=== PATIENT | male | born 1965 | race Caucasian/White ===

== ENCOUNTER → 2017-09-28 | Outpatient (CLI) | payer OTHER ==
[~2017-09-28] MED LIST: CIPR1TAB11 PO; HYDR-5688 PO; TAMS0.4C38 PO; WARF-281 PO; WARF-284 PO
--- NOTE | 2017-09-28 14:10 | DIAGNOSTIC IMAGING REPORT ---
CHEST 2 VIEWS ROUTINE CLINICAL HISTORY: COUGH R05 dyspnea COMPARISON STUDY: 07/31/2015 FINDINGS: Mild stable cardia megaly.. Lungs are clear. The diaphragms are smooth. IMPRESSION: No acute process. The above report was generated using voice recognition software. It may contain grammatical, syntax or spelling errors. Electronically signed by: Declan Suh M.D. 09/28/2017 2:09 PM Dictated Date/Time: 09/28/2017 2:08 PM
== END | disposition home or self-care (01) ==
LOC: C.RAD1850 13:58
PROVIDERS: ATTEND Physician Assistant
DX: R05 Cough (principal)

== ENCOUNTER 2018-02-22 14:01 | Emergency (ER) | payer OTHER ==
[~2018-02-22] VITALS: Ht 185.4 cm; Wt 155.0 kg
[2018-02-22 14:07] VITALS: TEMP 36.5; Ht 185.4 cm; Wt 155.0 kg
[2018-02-22] MEDS ORDERED: KETOROLAC TROMETHAMINE 30 MG/ML VIAL IV STA (14:13)
--- NOTE | 2018-02-22 14:35 | DIAGNOSTIC IMAGING REPORT ---
SINGLE VIEW CHEST CLINICAL HISTORY: Atypical chest pain. FINDINGS: An AP, portable, upright chest radiograph is compared to study dated 09/28/2017 and correlated with chest CT dated 07/31/2015. The examination is degraded by portable technique and patient rotation. The heart is top normal for projection. The pulmonary vasculature is noncongested. There is mild bibasilar atelectasis. No airspace consolidation or large pleural effusion is identified. No pneumothorax is seen. The bony thorax is grossly intact. IMPRESSION: No active disease in the chest. Electronically signed by: Errol Fontenot M.D. 02/22/2018 2:33 PM Dictated Date/Time: 02/22/2018 2:32 PM
[2018-02-22] MEDS ORDERED: WARF10TA4 PO ×2 (14:42)
[2018-02-22] MEDS ORDERED: WARF2TAB8 PO (14:42)
--- NOTE | 2018-02-22 15:06 | EMERGENCY ROOM VISIT NOTE ---
History Report prepared by Laura: Latesha Sargent Under the Supervision of: Dr. Bg Gill D.O. First contact with patient: 14:03 Stated Complaint: CHEST PAIN History of Present Illness The patient is a 52 year old male who presents to the Emergency Room with complaints of sudden left-sided chest pain beginning today. 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 The patient states that certain movements exacerbate his pain and states that his pain is an ache but then becomes a shooting pain when it is exacerbated. He reports that he went to Occupational Medicine and was then sent here. He states that he had an ECG done there but was not told that anything was abnormal. The patient states that he is on blood thinners for a history of blood clots. The patient states that he should be on blood pressure medication but that he does not take it. Source of History: patient Onset: today Position: chest (left) Quality: ache, other (shooting) Timing: other (sudden) Modifying Factors (Worsening): movement Review of Systems See HPI for pertinent positives & negatives. A total of 10 systems reviewed and were otherwise negative. Past Medical & Surgical Medical Problems: (1) History of blood clot Surgical Problems: (1) History of knee surgery Family History Cancer Diabetes mellitus Hypertension Kidney disease Kidney stones Social History Smoking Status: Never Smoker Alcohol Use: none Marital Status: in relationship Housing Status: lives with significant other Occupation Status: employed Current/Historical Medications Scheduled Warfarin Sod (Jantoven), 10 MG PO 1xwk Warfarin Sod (Jantoven), 10 MG PO DAILY Warfarin Sod (Jantoven), 2 MG PO DAILY Allergies Coded Allergies: No Known Allergies (Unverified , 02/22/18) Physical Exam Vital Signs Date Time Temp Pulse Resp B/P (MAP) Pulse Ox O2 Delivery O2 Flow Rate FiO2 02/22/18 14:18 92 02/22/18 14:07 Room Air 94 02/22/18 14:07 36.5 89 18 184/116 94 Room Air Physical Exam CONSTITUTIONAL/VITAL SIGNS: Reviewed / noted above. GENERAL: Non-toxic in appearance. INTEGUMENTARY: Warm, dry, and [place]. HEAD: Normocephalic. EYES: without scleral icterus or trauma. ENT/OROPHARYNX: clear and moist. LYMPHADENOPATHY/NECK: Is supple without lymphadenopathy or meningismus. RESPIRATORY: Lungs clear and equal. CARDIOVASCULAR: Regular rate and rhythm. GI/ABDOMEN: Soft and nontender. No organomegaly or pulsatile mass. No rebound or guarding. Normal bowel sounds. EXTREMITIES: Warm and well perfused. BACK: No CVA tenderness. NEUROLOGICAL: Intact without focal deficits. PSYCHIATRIC: normal affect. MUSCULOSKELETAL: Normally developed with good muscle tone. Tenderness to palpation in the left 4th and 5th costochondral area. Medical Decision & Procedures ER Provider Diagnostic Interpretation: Radiology results as stated below per my review and radiologist interpretation: SINGLE VIEW CHEST CLINICAL HISTORY: Atypical chest pain. FINDINGS: An AP, portable, upright chest radiograph is compared to study dated 09/28/2017 and correlated with chest CT dated 07/31/2015. The examination is degraded by portable technique and patient rotation. The heart is top normal for projection. The pulmonary vasculature is noncongested. There is mild bibasilar atelectasis. No airspace consolidation or large pleural effusion is identified. No pneumothorax is seen. The bony thorax is grossly intact. IMPRESSION: No active disease in the chest. Electronically signed by: Errol Fontenot M.D. 02/22/2018 2:33 PM Dictated Date/Time: 02/22/2018 2:32 PM Medications Administered Medications (Trade) Dose Ordered Sig/Griffin Route Start Time Stop Time Status Last Admin Dose Admin Ketorolac Tromethamine (Toradol Inj) 30 mg NOW STAT IV 02/22/18 14:13 02/22/18 14:15 DC 02/22/18 14:23 30 MG ECG Per My Interpretation Indication: chest pain Rate (beats per minute): 88 Rhythm: normal sinus Findings: no ectopy, other (no ST elevations) ED Course 1410: Previous medical records were reviewed. The patient was evaluated in room A11B. A complete history and physical examination was performed. 1413: Ordered Toradol Inj 30 mg IV. 1507: On reevaluation, the patient is resting. I discussed the results and findings with the patient. He verbalized agreement of the treatment plan. He was discharged home. Medical Decision the differential was considered includes acute myocardial infarction, acute coronary syndrome, myocarditis, pericarditis, pericardial effusions /tamponade, esophageal perforation, thoracic aortic dissection, pulmonary embolism, pneumonia, pneumothorax, pancreatitis, shingles, acute cholecystitis, perforated abdominal viscus. There is a 52-year-old male who presents to the ED with a chief complaint of left sided chest pain. He reports that it is a sharp pain and it occurred about 50 minutes after throwing some heavy bags of paper into a bin. The patient states that he threw about 2035 pound bags of paper into a bin. About 50 minutes later he noticed a sharp left-sided chest pain. He reports that his pain is worse with movement. He states that he has not had any recent exertional symptoms. Denies any shortness of breath or other associated symptoms with his pain. He feels that it is muscular in nature. The patient does have elevated blood pressure here. He states that he is supposed to be on blood pressure medicine and has it at home but routinely does not take it. He also states that he routinely had not been taking his Coumadin but is taking it because he has had a recurrent PE/DVT. The patient has an unremarkable exam with exception of some tenderness to palpation in the left fourth-fifth costochondral joint area. There is otherwise no abnormalities on exam. He is in no distress. EKG here shows a normal sinus rhythm at a rate of 88 without acute injury or ischemia. Chest x-ray did not show acute process. The patient was told the results. The patient is felt to be stable for discharge. He was treated with IV Toradol for his pain. Medication Reconcilliation Current Medication List: was personally reviewed by me Blood Pressure Screening Patient's blood pressure: Elevated blood pressure Blood pressure disposition: Referred to PCP Impression Primary Impression: Acute costochondritis Additional Impression: Chest wall muscle strain Scribe Attestation The scribe's documentation has been prepared under my direction and personally reviewed by me in its entirety. I confirm that the note above accurately reflects all work, treatment, procedures, and medical decision making performed by me. Departure Information Dispostion Home / Self-Care Referrals Marimar Lau M.D. (PCP) Forms Call Back Authorization, HOME CARE DOCUMENTATION FORM, IMPORTANT VISIT INFORMATION Additional Instructions Take Tylenol or Motrin as needed for pain peer Follow-up with your doctor for further care and evaluation in 1-2 days. Return to the emergency department for worsening or new symptoms or any concerns. You have been examined and treated today on an emergency basis only. This is not a substitute for, or an effort to provide, complete comprehensive medical care. It is impossible to recognize and treat all injuries or illnesses in a single emergency department visit. It is therefore important that you follow up closely with your doctor. Call as soon as possible for an appointment. Problem Qualifiers
[2018-02-22 15:17] VITALS: BP 151/89; PULSE 87; O2SAT 94
== END 2018-02-22 15:19 | disposition home or self-care (01) ==
LOC: EDBD 14:01 → C.EDA 14:02
DX: S29.011A Strain of muscle and tendon of front wall of thorax, initial encounter (principal); M94.0 Chondrocostal junction syndrome [Tietze]; X50.9XXA Other and unspecified overexertion or strenuous movements or postures, initial encounter; Y99.0 Civilian activity done for income or pay; Z86.718 Personal history of other venous thrombosis and embolism; Z79.01 Long term (current) use of anticoagulants; Z83.3 Family history of diabetes mellitus; Z82.49 Family history of ischemic heart disease and other diseases of the circulatory system; Z80.9 Family history of malignant neoplasm, unspecified; Z84.1 Family history of disorders of kidney and ureter

== ENCOUNTER 2024-07-17 05:04 | Observation (INO) ==
--- OUTSIDE RECORDS SUMMARY | 2024-07-17 05:18 | External Medical Summary | Continuity of Care Document ---
Author Name Unknown Organization [facility] [address] Address [address] [place], [place] [id number] Care Team Providers Care Computer Network Support Specialist Name Role Phone Marimar Lau Primary Care Physician [phone] [id number] Date(s): 04/10/24 - 04/10/24 [facility] [address] [facility] [address] [place], [place] [phone] Encounter Diagnosis Personal history of other venous thrombosis and embolism(Final) - Discharge Disposition: Home or Self Care Attending Physician: MD Lau Amy L Referring Physician: MD Lau Amy L Allergies, Adverse Reactions, Alerts No Known Allergies Immunizations Given and Recorded Vaccine Date Status Refusal Reason SARS-CoV-2 (COVID-19) mRNA-1273 vaccine 1 11/12/20 Recorded SARS-CoV-2 (COVID-19) mRNA-1273 vaccine 2 10/30/20 Recorded SARS-CoV-2 (COVID-19) mRNA-1273 vaccine 3 10/09/20 Recorded SARS-CoV-2 (COVID-19) mRNA BNT-162b2 vax 4 10/25/20 Recorded zoster vaccine, inactivated 5 03/19/20 Recorded zoster vaccine, inactivated 6 08/17/19 Recorded tetanus/diphtheria/pertuss, acel (Tdap) 7 05/20/15 Recorded hepatitis B adult vaccine 8 04/26/15 Recorded hepatitis B adult vaccine 9 03/26/15 Recorded pneumococcal 23-valent vaccine 10 03/10/06 Recorde d 1Result Comment: 2022-08-05: Historical information-source unspecified 2Result Comment: 2022-04-28: Historical information-source unspecified 3Result Comment: 2022-04-28: Historical information-source unspecified 4Result Comment: 2022-04-28: Historical information-source unspecified 5Result Comment: 2022-04-28: Historical information-source unspecified 6Result Comment: 2022-04-28: Historical information-source unspecified 7Result Comment: 2022-04-28: Historical information-source unspecified 8Result Comment: 2022-04-28: Historical information-source unspecified 9Result Comment: 2022-04-28: Historical information-source unspecified 10Result Comment: 2022-04-28: Historical information-source unspecified Medications albuterol CFC free 90 mcg/inh MDI Start: 10/31/21 5:15:00 PM EDT, 2 puff, inhaled, qid, Disp# 6.7 g, PRN: as needed for wheezing, Pharmacy: [id number] Start Date: 10/31/21 Stop Date: 11/30/21 Status: Ordered atorvastatin 40 mg oral tablet Start: 10/18/23 8:49:00 AM EDT, 1 tab, PO, Daily, Disp# 30 tab, Refills: 11, Pharmacy: [facility] Start Date: 10/18/23 Status: Ordered Basaglar KwikPen 100 units/mL subcutaneous solution Start: 03/01/24 7:48:00 AM EDT, 20 unit =, subQ, bid, Disp# 12 mL, Refills: 3, Pharmacy: [facility] Start Date: 03/01/24 Status: Ordered BD needle Ultra-Fine Pen Charline 32G x 4mm Start: 05/09/21 12:04:00 PM EDT, See Instructions, Disp# 100 each, Refills: 1, Use to inject insulin twice daily and 3 times daily PRN per sliding scale, Note to Pharmacy: ICD-10: E11.9, Pharmacy: [facility]/pharmacy #[id number] Start Date: 05/09/21 Status: Ordered BD PEN NEEDLE/CHARLINE [id number] MIS BD PEN NEEDLE/CHARLINE [id number] MIS, See Instructions, Disp# 100 each, Refills: 5, USE TO INJECT INSULINTWICE TO THREE TIMES DAILY NEEDED PER SLIDING SCAN, Pharmacy [id number] Start Date: 07/25/21 Status: Ordered Bentyl 10 mg oral capsule Start: 12/04/22 11:24:00 AM EDT, 1 cap, PO, tid, Disp# 42 cap, Refills: 1, Pharmacy: [facility] [id number] Start Date: 12/04/22 Stop Date: 01/01/23 Status: Ordered colchicine 0.6 mg oral tablet Start: 08/26/23 8:28:00 PM EST, See Instructions, Disp# 30 tab, Refills: 5, TAKE 2 TABLETS BY MOUTH AT THE FIRST SIGN OF A GOUT FLARE, FOLLOWED BY 1 TABLET 1 HOUR LATER, Pharmacy: [place] [id number] Start Date: 08/26/23 Status: Ordered Diltiazem 2% ointment Start: 10/26/22 1:59:00 PM EDT, Diltiazem 2% ointment, eRx Product Type: Compound, See Instructions,Disp# 30 g, Refills: 0, Apply ointment with gloved index finger to external anus three times a day,Pharmacy [facility] Start Date: 10/26/22 Status: Ordered fluconazole 200 mg oral tablet Start: 04/10/24 10:20:00 AM EDT, 1 tab, PO, Daily, Disp# 14 tab, X 14 day, Stop: 04/24/24 10:20:00 AM EDT, Pharmacy: [place] [id number] Start Date: 04/10/24 Stop Date: 04/24/24 Status: Ordered ketoconazole 2% topical cream Start: 04/10/24 10:20:00 AM EDT, 1 appl, topical, bid, Disp# 60 g, apply to groin and genital region/folds, Pharmacy: [place] [id number] Start Date: 04/10/24 Stop Date: 04/24/24 Status: Ordered lisinopril 5 mg oral tablet Start: 10/18/23 8:49:00 AM EDT, 1 tab, PO, Daily, Disp# 30 tab, Refills: 11, Pharmacy: [place] [id number] Start Date: 10/18/23 Status: Ordered metFORMIN 500 mg oral tablet Start: 01/10/24 10:05:00 AM EDT, 2 tab, PO, bid, Disp# 120 tab, Refills: 3, Pharmacy: [place] [place] [id number] Start Date: 01/10/24 Status: Ordered warfarin 7.5 mg oral tablet Start: 12/07/23 7:05:00 AM EDT, 2 tab, PO, Daily, Disp# 60 tab, Refills: 5, Pharmacy: [facility] Start Date: 12/07/23 Status: Ordered Problem List Condition Confirmation Course Effective Dates Status Health Status Informant Arthritis of right acromioclavicular joint Confirmed Active Basal cell carcinoma of eyelid Confirmed Active Benign hypertension without congestive heart failure Confirmed Active Gout Confirmed Active Rectal fissure Confirmed Active Diverticulitis Confirmed Active Dysphagia Confirmed Active Effusion, right knee Confirmed Active Elevated homocysteine Confirmed Active Eosinophilic esophagitis Confirmed 01/18/19 Active GERD (gastroesophageal reflux disease) Confirmed Active GERD without esophagitis Confirmed Active History of recurrent deep vein thrombosis (DVT) Confirmed Active Type 2 diabetes mellitus, with long-term current use of insulin Confirmed Active Irregular heartbeat Confirmed Active Arthralgia Confirmed Active Kidney stones Confirmed Active LLQ pain Confirmed Active 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 Joint pain due to Lyme disease Confirmed Active CHERYL (obstructive sleep apnea) 1 Confirmed Active Tinea unguium Confirmed Active Toenail fungus Confirmed Active Reflux Confirmed Active Left shoulder pain Confirmed Active Fecal urgency Confirmed Active Weight disorder Confirmed Active 1severe CHERYL w/ AHI of 41.8 Procedures Procedure Date Related Diagnosis Body Site Status CT of chest 1 09/22/[address] of abdomen and pelvis 2 12/30/22 Completed Laboratory findings data interpretation 3 12/30/22 Completed Laboratory findings data interpretation 4 12/17/22 Completed INCISION OF ANAL SPHINCTER 11/19/22 Completed Colonoscopy 5, 6, 7 11/18/22 Compl eted Upper GI (gastrointestinal) endoscopy 8 11/18/22 Completed Ultrasound scan of parotid gland 9 07/30/[address] angiography of chest with contrast 10 10/31/21 Completed Chest X-ray 11 01/02/21 Completed Upper GI endoscopy 12 01/18/19 Com pleted Polysomnograph 13 01/13/18 Complet ed Diagnostic endoscopic examin ation of esophagus and biopsy of lesion of esophagus using rigid esophagoscope 14 06/02/16 Completed Full sleep study 01/03/16 Complete d Ultrasound scan of abdomen a nd pelvis 15 07/18/15 Completed Venous ultrasound right lowe r extremity 16 04/12/15 Completed Colonoscopy 17, 18 11/12/14 Comple yeison Aspiration of joint 19 Co mpleted Doppler ultrasonography (US) of vein of lower limb-right leg 20 Compl eted R knee; L eyelid: cancer Completed [facility] IMPRESSION Interval resolution of previously noted left lower lung airspace opacity. Tiny stable pulmonary nodules. 2CT a/p with IV constrast, fatty liver, acute sigmoid diverituculitis, 9 mm non obstructin left renal pelvis calculus, bilateral nephrolithiasis. 3CR 1.2 nl. 4Cr 0.96 nl 5Three 4mm polyps in the descending colon, in the transverse colon and in the cecum. Removed with a cold snare. Resected and retrieved. 6Pathology results: A) Cecum, polypectomy: tubular adenoma B) Colon, hepatic flexure polypectomy: tubular adenoma C) Colon, descending polypectomy: hyperplastic polyp. Please note this is leveled x6. 7Repeat 5 years 8Esophageal mucosal changes secondary to eosinophilic esophagitis. Dilated. Normal stomach. Normal examined duodenum. LA Grade A reflux esophagitis. No specimens collected. 9impression: 1, The left parotid gland appears mildly enlargedand heterogeneous as compaired to the right. No significant hyperemia is shown on color imaging. Correlate clinically for evidence or parotitis 2. There are 3 hypoechoic nodules within the substance of the left parotid gland which likely represent lymph nodes. These may be reactive. a follow up ultrasound in 3-4 months time is recommended for reassessment 10[facility] Impression: 1. Mild cardiomegaly. No acute occlusive pulmonary emboli are identified. There are however chronicappearing segmental and subsegmental pulmonary emboli present within the right lower lobe 2. No pleural effusion or airspace consolidatoin typical for pneumonia 3. Mild bronchial wall thickening suggestive of bronchitis versus reactive airway disease 11Impression: No acute cardiopulmonary disease 12Impressions: Esophageal mucosal changes suggestive of eosinophilic. Dilalted. Biopsied. Normal stomach. Normal examined duodenum. Biopsied. 13Novasom 1. Severe CHERYL 14esophagus had ringed appearance c/w eosinophilic esophagitis, erosive esophagitis, hiatus hernia, bile found in entire stomach, mild erosive gastritis. Path : neg. H pylori, mod. chronic active esophagitis, eosinophilic esophagitis 15Slight prominence of the spleen at 13cm. Small right renal peripelvic cysts. 16[facility] Impression: 1.There is nearly occlusive deep venous thrombosis in the calf within the peroneal vein. No above-knee deep venous thrombosis is identified. 17One 6mm polyp in the cecum. Resected and retieved. The examined portion of the ileum was normal. 18Colon, cecum, polypectomy: 1. Benign colonic polyp with features consistent with mucosal prolapse. 2. No hyperplastic or adenomatous change. 3. No invasive carcinoma seen. 19Right knee while at 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 This is unchanged in destribution and extent as compared to the prior study. No new or interval change. Results Laboratory List Name Date Prothrombin Time w/ INR (PROTIME WITH IN R) 04/10/24 Most recent to oldest [Reference Range]: 1 INR [0.9-1.1] 3.3 1 *HI* (04/10/24 10:33 AM) PT [12.0-14.2 seconds] 33.0 seconds *HI* (04/10/24 10:33 AM) 1Result Comment: Suggested therapeutic range for low-intensity Coumadin therapy for venous thromboembolism is INR 2.0-3.0 (ex: atrial fibrillation, history of TIA/stroke). For high risk patients, the suggested therapeutic range is INR 2.5-3.5 (ex: mechanical prosthetic valves). Testing Performed By: [facility] [address] [place] [id number] Social History Social History Type Response Smoking Status Never smoked cigaret bernice Sex Male Sex Representation Male (finding) Patient Care team information Care Team Personnel Name: HANNA Jones Tara Position: Nurse Pract - Family Med Member Role: Lifetime Relationship Address: [address] [place] [id number] [place] Name: MD Sid, Marimar Neff Position: Physician - Family Med Member Role: Primary Care Provider Address: [address] [place] [id number] [place] Name: Herve Álvarez Francis Position: Pharmacist Schedule II Member Role: Pharmacy - Lifetime Address: [facility] [address] [place] [address] [place] Care Team Related Persons Name: JEFFREY ALSTON
--- OUTSIDE RECORDS SUMMARY | 2024-07-17 05:18 | External Medical Summary | Continuity of Care Document ---
Author Name Unknown Organization [place] [address] [place] [phone] Care Team Providers Care Cigar Packer And Grader Name Role Phone Marimar Lau Primary Care Physician [phone] Encounter [facility] [id number] Date(s): 06/05/24 - 06/05/24 [facility] 1850 [facility] 207 [facility] Medical [facility] [address] [address] [place] [phone] Encounter Diagnosis Personal history of other venous thrombosis and embolism(Final) - Discharge Disposition: Home or Self Care Attending Physician: MD Lau Amy L Allergies, Adverse [...] g, PRN: as needed for wheezing, Pharmacy: [facility] 1639 Start Date: 10/31/21 Stop Date: 11/30/21 Status: Ordered atorvastatin 40 mg oral tablet Start: 10/18/23 8:49:00 AM EDT, 1 tab, PO, Daily, Disp# 30 tab, Refills: 11, Pharmacy: [facility] 1639 Start Date: 10/18/23 Status: Ordered Basaglar KwikPen 100 units/mL subcutaneous solution Start: 03/01/24 7:48:00 AM EDT, 22 unit =, subQ, bid, Disp# 12 mL, Refills: 3, Pharmacy: [facility] 1639 Start Date: 03/01/24 Status: Ordered BD needle Ultra-Fine Pen Charline 32G x 4mm Start: 05/09/21 12:04:00 PM EDT, See Instructions, Disp# 100 each, Refills: 1, Use to inject insulin twice daily and 3 times daily PRN per sliding scale, Note to Pharmacy: ICD-10: E11.9, Pharmacy: [facility]/pharmacy #[id number] Start Date: 05/09/21 Status: Ordered BD PEN NEEDLE/CHARLINE [id number] MIS BD PEN NEEDLE/CHARLINE [id number] MIS, See Instructions, Disp# 100 each, Refills: 5, USE TO INJECT INSULINTWICE TO THREE TIMES DAILY NEEDED PER SLIDING SCAN, Pharmacy [facility] 1639 Start Date: 07/25/21 Status: Ordered Bentyl 10 mg oral capsule Start: 12/04/22 11:24:00 AM EDT, 1 cap, PO, tid, Disp# 42 cap, Refills: 1, Pharmacy: [place] [id number] Start Date: 12/04/22 Stop Date: 01/01/23 Status: Ordered colchicine 0.6 mg oral tablet Start: 08/26/23 8:28:00 PM EST, See Instructions, Disp# 30 tab, Refills: 5, TAKE 2 TABLETS BY MOUTH AT THE FIRST SIGN OF A GOUT FLARE, FOLLOWED BY 1 TABLET 1 HOUR LATER, Pharmacy: [place] [id number] Start Date: 08/26/23 Status: Ordered Diltiazem 2% ointment Start: 10/26/22 1:59:00 PM EDT, Diltiazem 2% ointment, eRx Product Type: Compound, See Instructions,Disp# 30 g, Refills: 0, Apply ointment with gloved index finger to external anus three times a day,Pharmacy [facility] Start Date: 10/26/22 Status: Ordered ketoconazole 2% topical cream Start: 04/10/24 10:20:00 AM EDT, 1 appl, topical, bid, Disp# 60 g, apply to groin and genital region/folds, Pharmacy: [place] [id number] Start Date: 04/10/24 Stop Date: 04/24/24 Status: Ordered lisinopril 5 mg oral tablet Start: 10/18/23 8:49:00 AM EDT, 1 tab, PO, Daily, Disp# 30 tab, Refills: 11, Pharmacy: [place] [id number] Start Date: 10/18/23 Status: Ordered metFORMIN 500 mg oral tablet Start: 01/10/24 10:05:00 AM EDT, 2 tab, PO, bid, Disp# 120 tab, Refills: 3, Pharmacy: [place] [address] Start Date: 01/10/24 Status: Ordered warfarin 7.5 mg oral tablet Start: 12/07/23 7:05:00 AM EDT, 2 tab, PO, Daily, Disp# 60 tab, Refills: 5, Pharmacy: [place] [id number] Start Date: 12/07/23 Status: Ordered Problem List [...] stones Confirmed Active 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 Mild cardiomegaly. No acute [...] 13cm. Small right renal peripelvic cysts. 16[facility] Impression: 1.There is nearly occlusive deep [...] invasive carcinoma seen. 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 This is unchanged in destribution and extent as compared to the prior study. No new or interval change. Results Laboratory List Name Date Prothrombin Time w/ INR (PROTIME WITH IN R) 06/05/24 Most recent to oldest [Reference Range]: 1 INR [0.9-1.1] 1.8 1 *HI* (06/05/24 10:16 AM) PT [12.0-14.2 seconds] 21.0 seconds *HI* (06/05/24 10:16 AM) 1Result Comment: Suggested therapeutic range for low-intensity Coumadin therapy for venous thromboembolism is INR 2.0-3.0 (ex: atrial fibrillation, history of TIA/stroke). For high risk patients, the suggested therapeutic range is INR 2.5-3.5 (ex: mechanical prosthetic valves). Testing Performed By: Dept of Pathology [facility], [address] [place] [id number] Social History Social History Type Response Smoking Status Never smoked cigaret bernice Sex Male Sex Representation Male (finding) Patient Care team information Care Team Personnel Name: HANNA Jones Tara Position: Nurse Pract - Family Med Member Role: Lifetime Relationship Address: [address] [place] [phone] [place] Name: MD Sid, Marimar Neff Position: Physician - Family Med Member Role: Primary Care Provider Address: [address] [place] [address] [place] Name: Herve Álvarez Francis Position: Pharmacist Schedule II Member Role: Pharmacy - Lifetime Address: [facility] [address] [place] [address] [place] Care Team Related Persons Name: JEFFREY ALTSON
--- OUTSIDE RECORDS SUMMARY | 2024-07-17 05:18 | External Medical Summary | Continuity of Care Document ---
Author Name Unknown Organization [place] [address] [address] [place] [phone] Care Team Providers Care Cook Tortilla Name Role Phone Marimar Lau Primary Care Physician [phone] [facility] [id number] Date(s): 06/12/24 - 06/12/24 [facility] 207 [facility] Medical [facility] [address] [address] [place] [phone] Encounter Diagnosis Personal history of other venous [...] g, PRN: as needed for wheezing, Pharmacy: [facility] 1639 Start Date: 10/31/21 Stop Date: 11/30/21 Status: Ordered atorvastatin 40 mg oral tablet Start: 10/18/23 8:49:00 AM EDT, 1 tab, PO, Daily, Disp# 30 tab, Refills: 11, Pharmacy: [facility] 1639 Start Date: 10/18/23 Status: Ordered Basaglar KwikPen 100 units/mL subcutaneous solution Start: 03/01/24 7:48:00 AM EDT, 22 unit =, subQ, bid, Disp# 12 mL, Refills: 3, Pharmacy: [facility] 1639 Start Date: 03/01/24 Status: Ordered BD needle Ultra-Fine Pen Charline 32G x 4mm Start: 05/09/21 12:04:00 PM EDT, See Instructions, Disp# 100 each, Refills: 1, Use to inject insulin twice daily and 3 times daily PRN per sliding scale, Note to Pharmacy: ICD-10: E11.9, Pharmacy: [facility]/pharmacy #[id number] Start Date: 05/09/21 Status: Ordered BD PEN NEEDLE/CHARLINE [id number] MIS BD PEN NEEDLE/CHARLINE [id number] MIS, See Instructions, Disp# 100 each, Refills: 5, USE TO INJECT INSULINTWICE TO THREE TIMES DAILY NEEDED PER SLIDING SCAN, Pharmacy [facility] 1639 Start Date: 07/25/21 Status: Ordered Bentyl 10 mg oral capsule Start: 12/04/22 11:24:00 AM EDT, 1 cap, PO, tid, Disp# 42 cap, Refills: 1, Pharmacy: [place] [id number] Start Date: 12/04/22 Stop Date: 01/01/23 Status: Ordered colchicine 0.6 mg oral tablet Start: 08/26/23 8:28:00 PM EST, See Instructions, Disp# 30 tab, Refills: 5, TAKE 2 TABLETS BY MOUTH AT THE FIRST SIGN OF A GOUT FLARE, FOLLOWED BY 1 TABLET 1 HOUR LATER, Pharmacy: [place] [id number] Start Date: 08/26/23 Status: Ordered Diltiazem 2% ointment Start: 10/26/22 1:59:00 PM EDT, Diltiazem 2% ointment, eRx Product Type: Compound, See Instructions,Disp# 30 g, Refills: 0, Apply ointment with gloved index finger to external anus three times a day,Pharmacy [facility] Start Date: 10/26/22 Status: Ordered ketoconazole 2% topical cream Start: 04/10/24 10:20:00 AM EDT, 1 appl, topical, bid, Disp# 60 g, apply to groin and genital region/folds, Pharmacy: [place] [id number] Start Date: 04/10/24 Stop Date: 04/24/24 Status: Ordered lisinopril 5 mg oral tablet Start: 10/18/23 8:49:00 AM EDT, 1 tab, PO, Daily, Disp# 30 tab, Refills: 11, Pharmacy: [place] [address] Start Date: 10/18/23 Status: Ordered metFORMIN 500 mg oral tablet Start: 01/10/24 10:05:00 AM EDT, 2 tab, PO, bid, Disp# 120 tab, Refills: 3, Pharmacy: [place] [address] Start Date: 01/10/24 Status: Ordered warfarin 7.5 mg oral tablet Start: 12/07/23 7:05:00 AM EDT, 2 tab, PO, Daily, Disp# 60 tab, Refills: 5, Pharmacy: [place] [address] Start Date: 12/07/23 Status: Ordered Problem List [...] stones Confirmed Active 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 Mild cardiomegaly. No acute [...] 13cm. Small right renal peripelvic cysts. 16[facility] Impression: 1.There is nearly occlusive deep [...] carcinoma seen. 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 This is unchanged in destribution and extent as compared to the prior study. No new or interval change. Results Laboratory List Name Date Prothrombin Time w/ INR (PROTIME WITH IN R) 06/12/24 Most recent to oldest [Reference Range]: 1 INR [0.9-1.1] 2.2 1 *HI* (06/12/24 10:13 AM) PT [12.0-14.2 seconds] 24.7 seconds *HI* (06/12/24 10:13 AM) 1Result Comment: Suggested therapeutic range for low-intensity Coumadin therapy for venous thromboembolism is INR 2.0-3.0 (ex: atrial fibrillation, history of TIA/stroke). For high risk patients, the suggested therapeutic range is INR 2.5-3.5 (ex: mechanical prosthetic valves). Testing Performed By: Dept of Pathology [facility], [address] [place] [id number] Social History Social History Type Response Smoking Status Never smoked cigaret bernice Sex Male Sex Representation Male (finding) Patient Care team information Care Team Personnel Name: HANNA Jones Tara Position: Nurse Pract - Family Med Member Role: Lifetime Relationship Address: [address] [place] [address] [place] Name: MD Sid, Marimar Neff Position: Physician - Family Med Member Role: Primary Care Provider Address: [address] [place] [address] [place] Name: Herve Álvarez Francis Position: Pharmacist Schedule II Member Role: Pharmacy - Lifetime Address: [facility] [address] [place] [address] [place] Care Team Related Persons Name: JEFFREY ALSTON
--- OUTSIDE RECORDS SUMMARY | 2024-07-17 05:18 | External Medical Summary ---
Author Name Unknown Address Unknown Organization : Laboratory Report Ordering Provider Test Date Status Javier Hornmagda 04/10/2024 10:38:00 Final Observation Date Value Abnormality Reference (Units ) Status Total Hep A [facility] 04/11/2024 12:25:00 NON-REACTIVE NON-REACTIVE Final
For additional informat ion, please refer to
[email or web address]/[email or web address]
(This link is being provided for informational/
educational purposes only.)

Specimen Received d/t: 04/11/2024 00:06:00

Lab test performed by:
[facility]
[address]
[place] [address]
Eddie Claudio MD Performing Location
--- OUTSIDE RECORDS SUMMARY | 2024-07-17 05:18 | External Medical Summary | Continuity of Care Document ---
Author Name Unknown Organization [place] [address] [place] [phone] Care Team Providers Care Sieve Repairer Name Role Phone Marimar Lau Primary Care Physician [phone] [id number] Date(s): 04/24/24 - 04/24/24 [facility] 207 [facility] Medical [facility] [address] [address] [place] [phone] Encounter Diagnosis Personal history of other venous [...] g, PRN: as needed for wheezing, Pharmacy: [facility] 1639 Start Date: 10/31/21 Stop Date: 11/30/21 Status: Ordered atorvastatin 40 mg oral tablet Start: 10/18/23 8:49:00 AM EDT, 1 tab, PO, Daily, Disp# 30 tab, Refills: 11, Pharmacy: [facility] 1639 Start Date: 10/18/23 Status: Ordered Basaglar KwikPen 100 units/mL subcutaneous solution Start: 03/01/24 7:48:00 AM EDT, 22 unit =, subQ, bid, Disp# 12 mL, Refills: 3, Pharmacy: [facility] 1639 Start Date: 03/01/24 Status: Ordered BD needle Ultra-Fine Pen Charline 32G x 4mm Start: 05/09/21 12:04:00 PM EDT, See Instructions, Disp# 100 each, Refills: 1, Use to inject insulin twice daily and 3 times daily PRN per sliding scale, Note to Pharmacy: ICD-10: E11.9, Pharmacy: [facility]/pharmacy #[id number] Start Date: 05/09/21 Status: Ordered BD PEN NEEDLE/CHARLINE [id number] MIS BD PEN NEEDLE/CHARLINE [id number] MIS, See Instructions, Disp# 100 each, Refills: 5, USE TO INJECT INSULINTWICE TO THREE TIMES DAILY NEEDED PER SLIDING SCAN, Pharmacy [facility] 1639 Start Date: 07/25/21 Status: Ordered Bentyl 10 mg oral capsule Start: 12/04/22 11:24:00 AM EDT, 1 cap, PO, tid, Disp# 42 cap, Refills: 1, Pharmacy: [place] [id number] Start Date: 12/04/22 Stop Date: 01/01/23 Status: Ordered colchicine 0.6 mg oral tablet Start: 08/26/23 8:28:00 PM EST, See Instructions, Disp# 30 tab, Refills: 5, TAKE 2 TABLETS BY MOUTH AT THE FIRST SIGN OF A GOUT FLARE, FOLLOWED BY 1 TABLET 1 HOUR LATER, Pharmacy: [place] [id number] Start Date: 08/26/23 Status: Ordered Diltiazem 2% ointment Start: 10/26/22 1:59:00 PM EDT, Diltiazem 2% ointment, eRx Product Type: Compound, See Instructions,Disp# 30 g, Refills: 0, Apply ointment with gloved index finger to external anus three times a day,Pharmacy [facility] Start Date: 10/26/22 Status: Ordered ketoconazole 2% topical cream Start: 04/10/24 10:20:00 AM EDT, 1 appl, topical, bid, Disp# 60 g, apply to groin and genital region/folds, Pharmacy: [place] [id number] Start Date: 04/10/24 Stop Date: 04/24/24 Status: Ordered lisinopril 5 mg oral tablet Start: 10/18/23 8:49:00 AM EDT, 1 tab, PO, Daily, Disp# 30 tab, Refills: 11, Pharmacy: [place] [id number] Start Date: 10/18/23 Status: Ordered metFORMIN 500 mg oral tablet Start: 01/10/24 10:05:00 AM EDT, 2 tab, PO, bid, Disp# 120 tab, Refills: 3, Pharmacy: [place] [address] Start Date: 01/10/24 Status: Ordered warfarin 7.5 mg oral tablet Start: 12/07/23 7:05:00 AM EDT, 2 tab, PO, Daily, Disp# 60 tab, Refills: 5, Pharmacy: [place] [id number] Start Date: 12/07/23 Status: Ordered Problem List [...] stones Confirmed Active LLQ pain Confirmed Active [facility] current use of anticoagulant Confirmed Active Joint [...] eted R knee; L eyelid: cancer Completed [address] [place], [place] [address]Bones 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 Mild cardiomegaly. No acute occlusive [...] 13cm. Small right renal peripelvic cysts. 16[facility] Impression: 1.There is nearly occlusive deep venous [...] invasive carcinoma seen. 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 This is unchanged in destribution and extent as compared to the prior study. No new or interval change. Results Laboratory List Name Date Prothrombin Time w/ INR (PROTIME WITH IN R) 04/24/24 Most recent to oldest [Reference Range]: 1 INR [0.9-1.1] 4.1 1 *HI* (04/24/24 10:16 AM) PT [12.0-14.2 seconds] 38.6 seconds *HI* (04/24/24 10:16 AM) 1Result Comment: Suggested therapeutic range for low-intensity Coumadin therapy for venous thromboembolism is INR 2.0-3.0 (ex: atrial fibrillation, history of TIA/stroke). For high risk patients, the suggested therapeutic range is INR 2.5-3.5 (ex: mechanical prosthetic valves). Testing Performed By: Dept of Pathology [facility], [address] [place] [address] Social History Social History Type Response Smoking Status Never smoked cigaret bernice Sex Male Sex Representation Male (finding) Patient Care team information Care Team Personnel Name: HANNA Jones Tara Position: Nurse Pract - Family Med Member Role: Lifetime Relationship Address: [address] [place] [phone] [place] Name: MD Sid, Marimar Neff Position: Physician - Family Med Member Role: Primary Care Provider Address: [address] [place] [address] [place] Name: Herve Álvarez Francis Position: Pharmacist Schedule II Member Role: Pharmacy - Lifetime Address: [facility] [address] [place] [phone] [place] Care Team Related Persons Name: JEFFREY ALSTON
--- OUTSIDE RECORDS SUMMARY | 2024-07-17 05:18 | External Medical Summary | Continuity of Care Document ---
Author Name Unknown Organization [place] [address] [address] [place] [phone] Care Team Providers Care Practice Architect Name Role Phone Marimar Lau Primary Care Physician [phone] [id number] Date(s): 05/22/24 - 05/22/24 [facility] 207 [facility] Medical [facility] [address] [address] [place] [phone] Encounter Diagnosis Personal history of other venous [...] g, PRN: as needed for wheezing, Pharmacy: [facility] 1639 Start Date: 10/31/21 Stop Date: 11/30/21 Status: Ordered atorvastatin 40 mg oral tablet Start: 10/18/23 8:49:00 AM EDT, 1 tab, PO, Daily, Disp# 30 tab, Refills: 11, Pharmacy: [facility] 1639 Start Date: 10/18/23 Status: Ordered Basaglar KwikPen 100 units/mL subcutaneous solution Start: 03/01/24 7:48:00 AM EDT, 22 unit =, subQ, bid, Disp# 12 mL, Refills: 3, Pharmacy: [facility] 1639 Start Date: 03/01/24 Status: Ordered BD needle Ultra-Fine Pen Charline 32G x 4mm Start: 05/09/21 12:04:00 PM EDT, See Instructions, Disp# 100 each, Refills: 1, Use to inject insulin twice daily and 3 times daily PRN per sliding scale, Note to Pharmacy: ICD-10: E11.9, Pharmacy: [facility]/pharmacy #[id number] Start Date: 05/09/21 Status: Ordered BD PEN NEEDLE/CHARLINE [id number] MIS BD PEN NEEDLE/CHARLINE [id number] MIS, See Instructions, Disp# 100 each, Refills: 5, USE TO INJECT INSULINTWICE TO THREE TIMES DAILY NEEDED PER SLIDING SCAN, Pharmacy [facility] 1639 Start Date: 07/25/21 Status: Ordered Bentyl 10 mg oral capsule Start: 12/04/22 11:24:00 AM EDT, 1 cap, PO, tid, Disp# 42 cap, Refills: 1, Pharmacy: [place] [id number] Start Date: 12/04/22 Stop Date: 01/01/23 Status: Ordered colchicine 0.6 mg oral tablet Start: 08/26/23 8:28:00 PM EST, See Instructions, Disp# 30 tab, Refills: 5, TAKE 2 TABLETS BY MOUTH AT THE FIRST SIGN OF A GOUT FLARE, FOLLOWED BY 1 TABLET 1 HOUR LATER, Pharmacy: [place] [address] Start Date: 08/26/23 Status: Ordered Diltiazem 2% ointment Start: 10/26/22 1:59:00 PM EDT, Diltiazem 2% ointment, eRx Product Type: Compound, See Instructions,Disp# 30 g, Refills: 0, Apply ointment with gloved index finger to external anus three times a day,Pharmacy [facility] Start Date: 10/26/22 Status: Ordered ketoconazole 2% topical cream Start: 04/10/24 10:20:00 AM EDT, 1 appl, topical, bid, Disp# 60 g, apply to groin and genital region/folds, Pharmacy: [place] [address] Start Date: 04/10/24 Stop Date: 04/24/24 Status: Ordered lisinopril 5 mg oral tablet Start: 10/18/23 8:49:00 AM EDT, 1 tab, PO, Daily, Disp# 30 tab, Refills: 11, Pharmacy: [place] [address] Start Date: 10/18/23 Status: Ordered metFORMIN 500 mg oral tablet Start: 01/10/24 10:05:00 AM EDT, 2 tab, PO, bid, Disp# 120 tab, Refills: 3, Pharmacy: [place] [address] Start Date: 01/10/24 Status: Ordered warfarin 7.5 mg oral tablet Start: 12/07/23 7:05:00 AM EDT, 2 tab, PO, Daily, Disp# 60 tab, Refills: 5, Pharmacy: [place] [id number] Start Date: 12/07/23 Status: Ordered Problem List [...] stones Confirmed Active 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 Mild cardiomegaly. No acute occlusive [...] 13cm. Small right renal peripelvic cysts. 16[facility] Impression: 1.There is nearly occlusive deep venous [...] carcinoma seen. 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 This is unchanged in destribution and extent as compared to the prior study. No new or interval change. Results Laboratory List Name Date Prothrombin Time w/ INR (PROTIME WITH IN R) 05/22/24 Most recent to oldest [Reference Range]: 1 INR [0.9-1.1] 1.3 1 *HI* (05/22/24 10:12 AM) PT [12.0-14.2 seconds] 15.7 seconds *HI* (05/22/24 10:12 AM) 1Result Comment: Suggested therapeutic range for low-intensity Coumadin therapy for venous thromboembolism is INR 2.0-3.0 (ex: atrial fibrillation, history of TIA/stroke). For high risk patients, the suggested therapeutic range is INR 2.5-3.5 (ex: mechanical prosthetic valves). Social History Social History Type Response Smoking Status Never smoked cigaret bernice Sex Male Sex Representation Male (finding) Patient Care team information Care Team Personnel Name: HANNA Jones Tara Position: Nurse Pract - Family Med Member Role: Lifetime Relationship Address: [address] [place] [address] [place] Name: MD Lau Amy L Position: Physician - Family Med Member Role: Primary Care Provider Address: [address] [place] [phone] [place] Name: Herve Álvarez Francis Position: Pharmacist Schedule II Member Role: Pharmacy - Lifetime Address: [facility] [address] [place] [address] [place] Care Team Related Persons Name: JEFFREY ALSTON
--- OUTSIDE RECORDS SUMMARY | 2024-07-17 05:18 | External Medical Summary | Continuity of Care Document ---
Author Name Unknown Organization [place] [address] [place] [id number] Care Team Providers Care Janitor Helper Name Role Phone Marimar Lau Primary Care Physician [phone] [id number] Date(s): 05/01/24 - 05/01/[address] [facility] 1850 [facility] 207 [facility] [address] [address] [place] [phone] Encounter Diagnosis Personal history of other venous [...] g, PRN: as needed for wheezing, Pharmacy: [facility] 1639 Start Date: 10/31/21 Stop Date: 11/30/21 Status: Ordered atorvastatin 40 mg oral tablet Start: 10/18/23 8:49:00 AM EDT, 1 tab, PO, Daily, Disp# 30 tab, Refills: 11, Pharmacy: [facility] 1639 Start Date: 10/18/23 Status: Ordered Basaglar KwikPen 100 units/mL subcutaneous solution Start: 03/01/24 7:48:00 AM EDT, 22 unit =, subQ, bid, Disp# 12 mL, Refills: 3, Pharmacy: [facility] 1639 Start Date: 03/01/24 Status: Ordered BD needle Ultra-Fine Pen Charline 32G x 4mm Start: 05/09/21 12:04:00 PM EDT, See Instructions, Disp# 100 each, Refills: 1, Use to inject insulin twice daily and 3 times daily PRN per sliding scale, Note to Pharmacy: ICD-10: E11.9, Pharmacy: [facility]/pharmacy #[id number] Start Date: 05/09/21 Status: Ordered BD PEN NEEDLE/CHARLINE [id number] MIS BD PEN NEEDLE/CHARLINE [id number] MIS, See Instructions, Disp# 100 each, Refills: 5, USE TO INJECT INSULINTWICE TO THREE TIMES DAILY NEEDED PER SLIDING SCAN, Pharmacy [facility] 1639 Start Date: 07/25/21 Status: Ordered Bentyl 10 mg oral capsule Start: 12/04/22 11:24:00 AM EDT, 1 cap, PO, tid, Disp# 42 cap, Refills: 1, Pharmacy: [place] [id number] Start Date: 12/04/22 Stop Date: 01/01/23 Status: Ordered colchicine 0.6 mg oral tablet Start: 08/26/23 8:28:00 PM EST, See Instructions, Disp# 30 tab, Refills: 5, TAKE 2 TABLETS BY MOUTH AT THE FIRST SIGN OF A GOUT FLARE, FOLLOWED BY 1 TABLET 1 HOUR LATER, Pharmacy: [place] [id number] Start Date: 08/26/23 Status: Ordered Diltiazem 2% ointment Start: 10/26/22 1:59:00 PM EDT, Diltiazem 2% ointment, eRx Product Type: Compound, See Instructions,Disp# 30 g, Refills: 0, Apply ointment with gloved index finger to external anus three times a day,Pharmacy [facility] Start Date: 10/26/22 Status: Ordered ketoconazole 2% topical cream Start: 04/10/24 10:20:00 AM EDT, 1 appl, topical, bid, Disp# 60 g, apply to groin and genital region/folds, Pharmacy: [place] [id number] Start Date: 04/10/24 Stop Date: 04/24/24 Status: Ordered lisinopril 5 mg oral tablet Start: 10/18/23 8:49:00 AM EDT, 1 tab, PO, Daily, Disp# 30 tab, Refills: 11, Pharmacy: [place] [id number] Start Date: 10/18/23 Status: Ordered metFORMIN 500 mg oral tablet Start: 01/10/24 10:05:00 AM EDT, 2 tab, PO, bid, Disp# 120 tab, Refills: 3, Pharmacy: [place] [id number] Start Date: 01/10/24 Status: Ordered warfarin 7.5 mg oral tablet Start: 12/07/23 7:05:00 AM EDT, 2 tab, PO, Daily, Disp# 60 tab, Refills: 5, Pharmacy: [place] [id number] Start Date: 12/07/23 Status: Ordered Problem List [...] stones Confirmed Active LLQ pain Confirmed Active retirement current use of anticoagulant Confirmed Active Joint [...] eted R knee; L eyelid: cancer Completed [address] [place], [place] [address]Bones 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 Mild cardiomegaly. No [...] 13cm. Small right renal peripelvic cysts. 16[facility] Impression: 1.There is nearly occlusive [...] invasive carcinoma seen. 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 This is unchanged in destribution and extent as compared to the prior study. No new or interval change. Results Laboratory List Name Date Prothrombin Time w/ INR (PROTIME WITH IN R) 05/01/24 Most recent to oldest [Reference Range]: 1 INR [0.9-1.1] 3.4 1 *HI* (05/01/24 10:19 AM) PT [12.0-14.2 seconds] 33.5 seconds *HI* (05/01/24 10:19 AM) 1Result Comment: Suggested therapeutic range for low-intensity Coumadin therapy for venous thromboembolism is INR 2.0-3.0 (ex: atrial fibrillation, history of TIA/stroke). For high risk patients, the suggested therapeutic range is INR 2.5-3.5 (ex: mechanical prosthetic valves). Testing Performed By: Dept of Pathology [facility], [address] [place] [id number] Social History Social History Type Response Smoking Status Never smoked cigaret bernice Sex Male Sex Representation Male (finding) Patient Care team information Care Team Personnel Name: HANNA Jones Tara Position: Nurse Pract - Family Med Member Role: Lifetime Relationship Address: [address] [place] [phone] [place] Name: MD Sid, Marimar Neff Position: Physician - Family Med Member Role: Primary Care Provider Address: [address] [place] [address] [place] Name: Herve Álvarez Francis Position: Pharmacist Schedule II Member Role: Pharmacy - Lifetime Address: [facility] [address] [place] [address] [place] Care Team Related Persons Name: JEFFREY ALSTON
--- OUTSIDE RECORDS SUMMARY | 2024-07-17 05:18 | External Medical Summary ---
Author Name Unknown Address Unknown Organization : Laboratory Report Ordering Provider Test Date Status Javier Hornjackieosman 04/10/2024 10:38:00 Final Observation Date Value Abnormality Reference (Units ) Status Hepatitis B virus surface Ab [Units/volume] in Serum or Plasma by Immunoassay 04/11/2024 12:25:00 12 > OR = 10 (mIU/mL) Final
Patient has immunity to hepatitis B virus.

For additional information, please refer to
http://education.Anita Margarita.Geenapp/faq/PJJ406
(This link is being provided for informational/
educational purposes only).

Specimen Received d/t: 04/11/2024 00:06:00

Lab test performed by:
[facility]
[address]
[place] [phone]
Eddie Claudio MD Performing Location
--- OUTSIDE RECORDS SUMMARY | 2024-07-17 05:18 | External Medical Summary ---
Author Name Unknown Address Unknown Organization : Laboratory Report Ordering Provider Test Date Status Kay Horn 04/10/2024 10:38:00 Final Observation Date Value Abnormality Reference (Units ) Status [facility] 04/11/2024 12:25:00 NON-REACTIVE NON-LISE CTIVE Final FASTING:UNKNOWN

FAS TING: UNKNOWN

Specimen Received d/t: 04/11/2024 00:06:00

Lab test performed by:
[facility]
[address]
[place] [phone]
Eddie Claudio MD Performing Location
--- OUTSIDE RECORDS SUMMARY | 2024-07-17 05:18 | External Medical Summary ---
Author Name Unknown Address Unknown Organization : Laboratory Report Ordering Provider Test Date Status Kay Horn 04/10/2024 10:38:00 Final Observation Date Value Abnormality Reference (Units ) Status Hepatitis C Antibody 04/11/2024 12:25:00 NON-REACTIVE NON-REACTIVE Final
HCV antibody was non-re active. There is no laboratory
evidence of HCV infection.

In most cases, no further action is required. However,
if recent HCV exposure is suspected, a test for HCV RNA
(test code 42341) is suggested.

For additional information please refer to
http://education.CardiaLen/faq/DWK25t1
(This link is being provided for informational/
educational purposes only.)

Specimen Received d/t: 04/11/2024 00:06:00

Lab test performed by:
[facility]
[address]
[place] [phone]
Eddie Claudio MD Performing Location
--- OUTSIDE RECORDS SUMMARY | 2024-07-17 05:18 | External Medical Summary ---
Author Name Unknown Address Unknown Organization : Laboratory Report Ordering Provider Test Date Status Kay Horn 04/10/2024 10:22:00 Final Observation Date Value Abnormality Reference (Units) Status Microscopic observation [Identifier] in Specimen by Gram stain 04/12/2024 14:04:00 See Result Comment Preliminary
Specimen Received d/t: 04/10/2024 23:37:00

Lab test performed by:
[facility]
[address]
[place] [phone]
Eddie Claudio MD Bacteria identified in Speci men by Anaerobe culture 05/09/2024 11:35:00 SEE COMMENT Final CULTURE, ANAEROBIC BACTERIA W/GRAM STAIN

Micro Number: [id number]
Test Status: Final
Specimen Source: Not given
Specimen Quality: Adequate
Gram Stain: Test Not Performed. Duplicate Test.

Result: Test not performed. No suitable specimen received.
Please review the test requirements at
[email or web address] Slides

Specimen Received d/t: 04/10/2024 23:37:00

Lab test performed by:
[facility]
[address]
[place] [phone]
Eddie Claudio MD Performing Location
--- OUTSIDE RECORDS SUMMARY | 2024-07-17 05:18 | External Medical Summary | Continuity of Care Document ---
Author Name Unknown Organization [place] [address] [address] [place] [id number] Care Team Providers Care Lei Maker Name Role Phone Marimar Lau Primary Care Physician [phone] [id number] Date(s): 02/03/24 - 02/03/24 [facility] 1850 [facility] 207 [facility] [address] [phone] Discharge Disposition: Home or Self Care Attending [...] g, PRN: as needed for wheezing, Pharmacy: [facility] Start Date: 10/31/21 Stop Date: 11/30/21 Status: Ordered atorvastatin 40 mg oral tablet Start: 10/18/23 8:49:00 AM EDT, 1 tab, PO, Daily, Disp# 30 tab, Refills: 11, Pharmacy: [facility]39 Start Date: 10/18/23 Status: Ordered Basaglar KwikPen 100 units/mL subcutaneous solution Start: 08/26/23 8:28:00 PM EST, 20 unit =, subQ, bid, Disp# 12 mL, Refills: 5, Pharmacy: [facility]39 Start Date: 08/26/23 Status: Ordered BD needle Ultra-Fine Pen Charline 32G x 4mm Start: 05/09/21 12:04:00 PM EDT, See Instructions, Disp# 100 each, Refills: 1, Use to inject insulin twice daily and 3 times daily PRN per sliding scale, Note to Pharmacy: ICD-10: E11.9, Pharmacy: [facility]/pharmacy #[id number] Start Date: 05/09/21 Status: Ordered BD PEN NEEDLE/CHARLINE [id number] MIS BD PEN NEEDLE/CHARLINE [id number] MIS, See Instructions, Disp# 100 each, Refills: 5, USE TO INJECT INSULINTWICE TO THREE TIMES DAILY NEEDED PER SLIDING SCAN, Pharmacy [facility]39 Start Date: 07/25/21 Status: Ordered Bentyl 10 mg oral capsule Start: 12/04/22 11:24:00 AM EDT, 1 cap, PO, tid, Disp# 42 cap, Refills: 1, Pharmacy: [place] [id number] Start Date: 12/04/22 Stop Date: 01/01/23 Status: Ordered colchicine 0.6 mg oral tablet Start: 09/30/21 4:11:00 PM EDT, See Instructions, Disp# 30 tab, Refills: 5, Take 2 tabs PO at the first sign of a gout flare followed by 1 tab one hour later, Pharmacy: [facility] Start Date: 09/30/21 Status: Ordered colchicine 0.6 mg oral tablet Start: 08/26/23 8:28:00 PM EST, See Instructions, Disp# 30 tab, Refills: 5, TAKE 2 TABLETS BY MOUTH AT THE FIRST SIGN OF A GOUT FLARE, FOLLOWED BY 1 TABLET 1 HOUR LATER, Pharmacy: [place] [id number] Start Date: 08/26/23 Status: Ordered Diltiazem 2% ointment Start: 10/26/22 1:59:00 PM EDT, Diltiazem 2% ointment, eRx Product Type: Compound, See Instructions,Disp# 30 g, Refills: 0, Apply ointment with gloved index finger to external anus three times a day,Pharmacy [facility] Start Date: 10/26/22 Status: Ordered Fish Oil 1000 mg oral capsule Start: 02/03/21 8:39:00 AM EDT, 1 cap, PO, bid, Disp# 60 cap, Refills: 5, Pharmacy: [address] Start Date: 02/03/21 Status: Ordered lisinopril 5 mg oral tablet Start: 10/18/23 8:49:00 AM EDT, 1 tab, PO, Daily, Disp# 30 tab, Refills: 11, Pharmacy: [place] [id number] Start Date: 10/18/23 Status: Ordered Metamucil Start: 12/04/22 10:54:00 AM EDT, 2 tablespoons mixed with fluid po daily Start Date: 12/04/22 Status: Ordered metFORMIN 500 mg oral tablet Start: 01/10/24 10:05:00 AM EDT, 2 tab, PO, bid, Disp# 120 tab, Refills: 3, Pharmacy: [place] [id number] Start Date: 01/10/24 Status: Ordered Pepcid 20 mg oral tablet Start: 01/13/23 11:36:00 AM EDT, 1 tab, PO, bid, Disp# 60 tab, Refills: 7, Pharmacy: [id number] Start Date: 01/13/23 Status: Ordered warfarin 7.5 mg oral tablet Start: 12/07/23 7:05:00 AM EDT, 2 tab, PO, Daily, Disp# 60 tab, Refills: 5, Pharmacy: [facility] Start Date: 12/07/23 Status: Ordered Problem [...] 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 Mild cardiomegaly. No acute [...] 13cm. Small right renal peripelvic cysts. 16[facility] Impression: 1.There is nearly occlusive deep [...] invasive carcinoma seen. 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 This is unchanged in destribution and extent as compared to the prior study. No new or interval change. Results Laboratory List Name Date Prothrombin Time w/ INR (PROTIME WITH IN R) 02/03/24 Most recent to oldest [Reference Range]: 1 INR [0.9-1.1] 2.1 1 *HI* (02/03/24 8:53 AM) PT [12.0-14.2 seconds] 24.0 seconds *HI* (02/03/24 8:53 AM) 1Result Comment: Suggested therapeutic range for low-intensity Coumadin therapy for venous thromboembolism is INR 2.0-3.0 (ex: atrial fibrillation, history of TIA/stroke). For high risk patients, the suggested therapeutic range is INR 2.5-3.5 (ex: mechanical prosthetic valves). Testing Performed By: [facility], [address] [place] [id number] Social History Social History Type Response Smoking Status Never smoked cigaret bernice Sex Male Sex Representation Male (finding) Patient Care team information Care Team Personnel Name: HANNA Jones Tara Position: Nurse Pract - Family Med Member Role: Lifetime Relationship Address: [address] [place] [id number] [place] Name: MD Lau Amy L Position: Physician - Family Med Member Role: Primary Care Provider Address: [address] [place] [phone] [place] Name: Herve Álvarez Francis Position: Pharmacist Schedule II Member Role: Pharmacy - Lifetime Address: [facility] [address] [place] [phone] [place] Care Team Related Persons Name: JEFFREY ALSTON
--- OUTSIDE RECORDS SUMMARY | 2024-07-17 05:18 | External Medical Summary ---
Author Name Unknown Address Unknown Organization : Laboratory Report Ordering Provider Test Date Status Kay Horn 04/10/2024 10:22:00 Final Observation Date Value Abnormality Reference (Units ) Status Bacteria identified in Specimen by Aerobe culture 05/09/2024 11:35:00 See Result Comment Final CULTURE, AEROBIC BACTERIA WI TH GRAM STAIN

Micro Number: [id number]
Test Status: Final
Specimen Source: Left groin
Specimen Quality: Adequate
Gram Stain: Rare epithelial cells
Moderate Red blood cells seen
No organisms or white blood cells seen

Result: Moderate growth of Group B Streptococcus isolated
Beta-hemolytic streptococci are predictably
susceptible to Penicillin and other beta-lactams.
Susceptibility testing not routinely performed.
Please contact the laboratory within 3 days if
susceptibility testing is desired.

COMMENT: Skin esetlita also present.

Specimen Received d/t: 04/10/2024 23:37:00

Lab test performed by:
[facility]
[address]
[place] [phone]
Eddie Claudio MD Performing Location
--- OUTSIDE RECORDS SUMMARY | 2024-07-17 05:18 | External Medical Summary | Continuity of Care Document ---
Author Name Unknown Organization [facility] Address [address] [place] [phone] Care Team Providers Care Lump Receiver Name Role Phone Sid Marimar Neff Primary Care Physician [phone] [facility] [id number] Date(s): 04/10/24 - 04/10/[address] [facility] [address], [address] [place] [address] [phone] Encounter Diagnosis Benign hypertension without congestive heart failure(Discharge Diagnosis) - 04/10/24 History of pulmonary embolus (PE)(Discharge Diagnosis) - 04/10/24 History of recurrent deep vein thrombosis (DVT)(Discharge Diagnosis) - 04/10/24 state inspector current use of anticoagulant(Discharge Diagnosis) - 04/10/24 Type 2 diabetes mellitus, with long-term current use of insulin(Discharge Diagnosis) - 04/10/24 Acute constipation(Discharge Diagnosis) - 04/10/24 Unable to pass flatus(Discharge Diagnosis) - 04/10/24 Intertrigo(Discharge Diagnosis) - 04/10/24 Skin ulcer(Discharge Diagnosis) - 04/10/24 Screening examination for STI(Discharge Diagnosis) - 04/10/24 Discharge Disposition: Home or Self Care Attending Physician: JESUS Villanueva Jessica A Allergies, Adverse Reactions, Alerts No Known Allergies Assessment and Plan Extracted from: Title:Office Visit Note Author:JESUS Villanueva Jessica A Date:04/10/24 1.Benign hypertension with out congestive heart failure Benign hypertension without congestive heart failure is chronic and well-controlled. Goal SBP <130 and DBP <80 mmHg. Continue lisinopril 5 mg, 1 tab p.o. daily. Follow-up again in 6 months. Updated CMP and lipid profile ordered today. 2.History of pulmonary embolus (PE) History of pulmonary embolism and recurrent DVTare managed with chronic anticoagulation with use of warfarin. To continue gettingINR checks weekly to every 4 weeks based onlevels. No signs of symptoms of bleeding. 3.History of recurrent deep vein thrombosis (DVT) As above in #2. 4.alf current use of anticoagulant As above in #2. 5.Type 2 diabetes mellitus, with long-term current use of insulin Type 2 diabetes with long-term use of insulin is chronic and well-controlled. Goal A1c is <7%. Labs reviewed from August 2023 show A1c of 7%. Continue metformin 500 mg, 1 tab p.o. twice daily and Basaglar 20 units twice daily. Continue home glucose monitoring. Updated A1c, lipid profile, TSH, CMP and urine microalbumin ordered. Continue annual diabetic eye exams as well. 6.Acute constipation Patient has had acute constipation and inability to passflatusin the last 5 to 6 days. Goal is resolution of symptoms. Abdominal x-rayordered. Recommend trial of eitherMiraLAX, 1 capful dissolved in 48 ounces of liquiddaily until having a BM or may trysennosides 8.6 mg, 2 tabs p.o. daily to twice dailyas needed for constipation. Advised to seek care at the ER if he is still unable to move bowels, develops any severe abdominal pain, vomiting, feveror new symptoms. Patient agreed. 7.Unable to pass flatus As above in #6. 8.Intertrigo Patient has what appears to be Stefanie intertrigo with some open lesionsat bilateral inguinal folds, which has been uncontrolled. Area wascultured and sent forfungal culture. Treat empirically with ketoconazole 2% cream applied daily to twice dailyfor 2 to 4 weeks and was also given fluconazole 200 mg, 1 tab p.o. daily x 2 weeks. Advised patient to hold his cholesterol medication while taking fluconazole and avoidEtOH intake. Recommend close follow-up if symptoms are not improving after 2 weeks, worsen or change. Declines toschedule follow-up at this time. 9.Skin ulcer As above in #8. 10.Screening examination for STI STI screening counseled and ordered today. Time spent on pre-visit plannin minutes on chart review Face to face time spent w/ patient: 31 minutes Time spent documenting pertinent clinical information into the EMR:22 minutes Total time: 55 minutes Immunizations Given and Recorded Vaccine Date Status [...] g, PRN: as needed for wheezing, Pharmacy: [facility] Start Date: 10/31/21 Stop Date: 11/30/21 Status: Ordered atorvastatin 40 mg oral tablet Start: 10/18/23 8:49:00 AM EDT, 1 tab, PO, Daily, Disp# 30 tab, Refills: 11, Pharmacy: [facility] Start Date: 10/18/23 Status: Ordered Basaglar KwikPen 100 units/mL subcutaneous solution Start: 03/01/24 7:48:00 AM EDT, 22 unit =, subQ, bid, Disp# 12 mL, Refills: 3, Pharmacy: [facility] Start Date: 03/01/24 Status: Ordered BD needle Ultra-Fine Pen Contreras 32G x 4mm Start: 05/09/21 12:04:00 PM EDT, See Instructions, Disp# 100 each, Refills: 1, Use to inject insulin twice daily and 3 times daily PRN per sliding scale, Note to Pharmacy: ICD-10: E11.9, Pharmacy: [facility]/pharmacy #[id number] Start Date: 05/09/21 Status: Ordered BD PEN NEEDLE/CONTRERAS [id number] MIS BD PEN NEEDLE/CONTRERAS 93OS1OH MIS, See Instructions, Disp# 100 each, Refills: 5, USE TO INJECT INSULINTWICE TO THREE TIMES DAILY NEEDED PER SLIDING SCAN, Pharmacy [place] [id number] Start Date: 07/25/21 Status: Ordered Bentyl 10 mg oral capsule Start: 12/04/22 11:24:00 AM EDT, 1 cap, PO, tid, Disp# 42 cap, Refills: 1, Pharmacy: [place] [id number] Start Date: 12/04/22 Stop Date: 01/01/23 Status: Ordered colchicine 0.6 mg oral tablet Start: 08/26/23 8:28:00 PM EST, See Instructions, Disp# 30 tab, Refills: 5, TAKE 2 TABLETS BY MOUTH AT THE FIRST SIGN OF A GOUT FLARE, FOLLOWED BY 1 TABLET 1 HOUR LATER, Pharmacy: [place] [id number] Start Date: 08/26/23 Status: Ordered Diltiazem 2% ointment Start: 10/26/22 1:59:00 PM EDT, Diltiazem 2% ointment, eRx Product Type: Compound, See Instructions,Disp# 30 g, Refills: 0, Apply ointment with gloved index finger to external anus three times a day,Pharmacy [facility] Start Date: 10/26/22 Status: Ordered fluconazole 200 mg oral tablet Start: 04/10/24 10:20:00 AM EDT, 1 tab, PO, Daily, Disp# 14 tab, X 14 day, Stop: 04/24/24 10:20:00 AM EDT, [facility] Start Date: 04/10/24 Stop Date: 04/24/24 Status: Ordered ketoconazole 2% topical cream Start: 04/10/24 10:20:00 AM EDT, 1 appl, topical, bid, Disp# 60 g, apply to groin and genital region/folds, [facility] Start Date: 04/10/24 Stop Date: 04/24/24 Status: Ordered lisinopril 5 mg oral tablet Start: 10/18/23 8:49:00 AM EDT, 1 tab, PO, Daily, Disp# 30 tab, Refills: 11, Pharmacy: [facility] Start Date: 10/18/23 Status: Ordered metFORMIN 500 mg oral tablet Start: 01/10/24 10:05:00 AM EDT, 2 tab, PO, bid, Disp# 120 tab, Refills: 3, [facility] Start Date: 01/10/24 Status: Ordered warfarin 7.5 mg oral tablet Start: 12/07/23 7:05:00 AM EDT, 2 tab, PO, Daily, Disp# 60 tab, Refills: 5, Pharmacy: [facility] Start Date: 12/07/23 Status: Ordered Mental Status 04/10/24 Barriers to Learning one year None evide nt Mandatory Health Literacy Documentation Yes Health Literacy Communication Barriers N ever Primary Language Japanese Problem List Condition Confirmation Course Effective Dates [...] stones Confirmed Active LLQ pain Confirmed Active alf current use of anticoagulant Confirmed Active Joint pain due to Lyme disease Confirmed Active CHERYL (obstructive sleep apnea) 1 Confirmed Active Tinea unguium Confirmed Active Toenail fungus Confirmed Active Reflux Confirmed Active Left shoulder pain Confirmed Active Fecal urgency Confirmed Active Weight disorder Confirmed Active 1severe CHERYL w/ AHI of 41.8 Diagnosis Diagnosis Type Effective Dates Health Status Clinical Service Informant History of pulmonary embolus (PE) Discharge Diagnosis 04/10/24 Non-Specified state inspector current use of anticoagulant Discharge Diagnosis 04/10/24 Non-Specified Benign hypertension without congestive heart failure Discharge Diagnosis 04/10/24 Non-Specified Unable to pass flatus Discharge Diagnosis 04/10/24 Non-Specified History of recurrent deep vein thrombosis (DVT) Discharge Diagnosis 04/10/24 Non-Specified Type 2 diabetes mellitus, with long-term current use of insulin Discharge Diagnosis 04/10/24 Non-Specified Intertrigo Discharge Diagnosis 04/10/24 Non-Specified Skin ulcer Discharge Diagnosis 04/10/24 Non-Specified Acute constipation Discharge Diagnosis 04/10/24 Non-Specified Screening examination for STI Discharge Diagnosis 04/10/24 Non-Specified Procedures Procedure Date Related Diagnosis Body Site [...] eted R knee; L eyelid: cancer Completed [address] [place], [place] [address] Degenerative changes in the thoracic spine IMPRESSION [...] months time is recommended for reassessment 10[facility] Impression: 1. Mild cardiomegaly. No acute [...] 13cm. Small right renal peripelvic cysts. 16[facility] Impression: 1.There is nearly occlusive deep [...] invasive carcinoma seen. 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 This is unchanged in destribution and extent as compared to the prior study. No new or interval change. Results Laboratory List Name Date Hepatitis A Antibody Total. (Hepatitis A Ab Total-ARLN) 04/10/24 Hepatitis B Core Antibody Total . (Hepat itis B Core Total-ARLN) 04/10/24 Hepatitis B Surface Antibody. (HBsAb-ARL N) 04/10/24 Hepatitis B Surface Antigen. (HBsAg-ARLN ) 04/10/24 Hepatitis C Antibody rflx HCV RNA Qnt. ( Hep C Ab rflx HCV RNA Qnt-ARLN) 04/10/24 RPR c/ Reflex. (RPR c/Reflex-ARLN) Most recent to oldest [Reference Range]: 1 Hepatitis C Antibody-QST [NON-REACTIVE] NON-REACTIVE 1 (04/10/24 10:36 AM) Bilirubin, Total (QST) [0.2-1.2 mg/dL] 0 .5 mg/dL 2 (04/10/24 10:36 AM) HBsAb-[facility] [> OR = 10 mIU/mL] 12 mIU/mL 3 (04/10/24 10:36 AM) Total Hep A Ab-[facility] [NON-REACTIVE] NON- REACTIVE 4 (04/10/24 10:36 AM) HBcAb-[facility] [NON-REACTIVE] NON-REACTIVE 5 (04/10/24 10:36 AM) HBsAg-[facility] [NON-REACTIVE] NON-REACTIVE 6 (04/10/24 10:36 AM) BUN-[facility] [7-25 mg/dL] 15 mg/dL 7 (04/10/24 10:36 AM) Creatinine-[facility] [0.70-1.35 mg/dL] 1.30 mg/dL 8 (04/10/24 10:36 AM) BUN/Creat Ratio-[facility] [6-22 (calc)] SEE NOTE: (calc) 9 (04/10/24 10:36 AM) Na-[facility] [135-146 mmol/L] 138 mmol/L 10 (04/10/24 10:36 AM) K-[facility] [3.5-5.3 mmol/L] 4.3 mmol/L 11 (04/10/24 10:36 AM) Cl-[facility] [98-110 mmol/L] 102 mmol/L 12 (04/10/24 10:36 AM) CO2-[facility] [20-32 mmol/L] 26 mmol/L 13 (04/10/24 10:36 AM) Ca-[facility] [8.6-10.3 mg/dL] 9.9 mg/dL 14 (04/10/24 10:36 AM) Globulin-[facility] [1.9-3.7 g/dL (calc)] 2.8 g/dL (calc) 15 (04/10/24 10:36 AM) A/G Ratio-[facility] [1.0-2.5 (calc)] 1.6 (ca lc) 16 (04/10/24 10:36 AM) RPR-[facility] [NON-REACTIVE] NON-REACTIVE 17 (04/10/24 10:36 AM) Alkaline Phosphatase (ALP) [35-144 U/L] 84 U/L 18 (04/10/24 10:36 AM) Albumin, Serum [3.6-5.1 g/dL] 4.6 g/dL 1 9 (04/10/24 10:36 AM) eAG (mg/dL) 169 mg/dL 20 (04/10/24 10:36 AM) eAG (mmol/L) 9.3 mmol/L 21 (04/10/24 10:36 AM) C Trachomatis RNA, TMA (QST) [NOT DETECT ED] NOT DETECTED 22 (04/10/24 10:36 AM) Neisseria Gonorrhoeae RNA, TMA (QST) [NO T DETECTED] NOT DETECTED 23 (04/10/24 10:36 AM) Message SEE COMMENT 24 (04/10/24 10:36 AM) U Creatinine [20-320 mg/dL] 151 mg/dL 25 (04/10/24 10:36 AM) ALT [9-46 U/L] 17 U/L 26 (04/10/24 10:36 AM) HbA1c [<5.7 % of total Hgb] 7.5 % of tot al Hgb 27 *HI* (04/10/24 10:36 AM) eGFR-QST [> OR = 60 mL/min/1.73m2] 63 mL /min/1.73m2 28 (04/10/24 10:36 AM) Triglycerides-QST [<150 mg/dL] 304 mg/dL 29 *HI* (04/10/24 10:36 AM) Non HDL Chol-QST [<130 mg/dL (calc)] 137 mg/dL (calc) 30 *HI* (04/10/24 10:36 AM) HDL Chol-QST [> OR = 40 mg/dL] 31 mg/dL 31 *LOW* (04/10/24 10:36 AM) Chol/HDLC Ratio-QST [<5.0 (calc)] 5.4 (c alc) 32 *HI* (04/10/24 10:36 AM) Cholesterol-QST [<200 mg/dL] 168 mg/dL 3 3 (04/10/24 10:36 AM) LDL Chol-QST 96 mg/dL (calc) 34 (04/10/24 10:36 AM) TSH (QST) [0.40-4.50 mIU/L] 2.91 mIU/L 3 5 (04/10/24 10:36 AM) Protein/Creatinine Ratio. [25-148] 40 36 (04/10/24 10:36 AM) AST [10-35 U/L] 20 U/L 37 (04/10/24 10:36 AM) Glucose-Qst [65-99 mg/dL] 120 mg/dL 38 *HI* (04/10/24 10:36 AM) U Protein-QST [5-25 mg/dL] 6 mg/dL 39 (04/10/24 10:36 AM) U Protein/Creatinine Ratio-QST [0.025-0. 148] 0.040 40 (04/10/24 10:36 AM) Total Protein-QST [6.1-8.1 g/dL] 7.4 g/d L 41 (04/10/24 10:36 AM) 1Result Comment: HCV antibody was non-reactive. There is no laboratory evidence of HCV infection. In most cases, no further action is required. However, if recent HCV exposure is suspected, a test for HCV RNA (test code 62296) is suggested. For additional information please refer to http://education.questdiagnostics.com/faq/EHA02a7 (This link is being provided for informational/ educational purposes only.) Specimen Received d/t: 04/11/2024 00:06:00 Lab test performed by: [facility] [employer] [phone] Eddie Claudio MD 2Result Comment: Specimen Received d/t: 04/11/2024 00:06:00 [facility] [employer] [address] [place] [phone] Eddie Claudio MD 3Result Comment: Patient has immunity to hepatitis B virus. For additional information, please refer to http://[employer]/faq/EYJ685 (This link is being provided for informational/ educational purposes only). Specimen Received d/t: 04/11/2024 00:06:00 Lab test performed by: [facility] [employer] [address] [place] [phone] Claudio MD 4Result Comment: For additional information, please refer to http://[employer]/faq/BDP431 (This link is being provided for informational/ educational purposes only.) Specimen Received d/t: 04/11/2024 00:06:00 Lab test performed by: [facility] [employer] [address] [place] [phone] Claudio MD 5Result Comment: For additional information, please refer to http://[employer]/faq/EKV354 (This link is being provided for informational/ educational purposes only.) Specimen Received d/t: 04/11/2024 00:06:00 Lab test performed by: [facility] [employer] [address] [place] [phone] Claudio MD 6Result Comment: For additional information, please refer to http://[employer]/faq/KGT425 (This link is being provided for informational/ educational purposes only.) Specimen Received d/t: 04/11/2024 00:06:00 Lab test performed by: [facility] [employer] [address] [place] [address]Malorie Claudio MD 7Result Comment: Specimen Received d/t: 04/11/2024 00:06:00 Lab test performed by: [facility] [employer] [address] [place] [address]Malorie Claudio MD 8Result Comment: Specimen Received d/t: 04/11/2024 00:06:00 Lab test performed by: [facility] [employer] [address] [place], [place] [address] [place], [place] Cecil Claudio MD 9Result Comment: Not Reported: BUN and Creatinine are within reference range. Specimen Received d/t: 04/11/2024 00:06:00 Lab test performed by: [facility] [employer] [address] [place] [address]Roland Claudio MD 10Result Comment: Specimen Received d/t: 04/11/2024 00:06:00 Lab test performed by: [facility] [employer] [address] [place] Cecil Claudio MD 11Result Comment: Specimen Received d/t: 04/11/2024 00:06:00 Lab test performed by: [facility] [employer] [address] [place] [address]Malorie Claudio MD 12Result Comment: Specimen Received d/t: 04/11/2024 00:06:00 Lab test performed by: [facility] [employer] [address] [place] [address]Malorie Claudio MD 13Result Comment: Specimen Received d/t: 04/11/2024 00:06:00 Lab test performed by: [facility] [employer] [address] [place] [address]Malorie Claudio MD 14Result Comment: Specimen Received d/t: 04/11/2024 00:06:00 Lab test performed by: [facility], [facility] [employer] [address] [place] [address] Eddie Claudio MD 15Result Comment: Specimen Received d/t: 04/11/2024 00:06:00 Lab test performed by: [facility] [employer] [address] [place] [address] Eddie Claudio MD 16Result Comment: Specimen Received d/t: 04/11/2024 00:06:00 Lab test performed by: [facility] [employer] [address] [place] [address] Eddie Claudio MD 17Result Comment: FASTING:UNKNOWN FASTING: UNKNOWN Specimen Received d/t: 04/11/2024 00:06:00 Lab test performed by: [facility] [employer] [address] [place] [address]Malorie Claudio MD 18Result Comment: Specimen Received d/t: 04/11/2024 00:06:00 Lab test performed by: [facility] [employer] [address] [place] [address]Malorie Claudio MD 19Result Comment: Specimen Received d/t: 04/11/2024 00:06:00 Lab test performed by: [facility] [employer] [address] [place] [address] Eddie Claudio MD 20Result Comment: Specimen Received d/t: 04/11/2024 00:06:00 Lab test performed by: [facility] [employer] [address] [place] [address] Eddie Claudio MD 21Result Comment: Specimen Received d/t: 04/11/2024 00:06:00 Lab test performed by: [facility] [employer] [address] [place] [address] Eddie Claudio MD 22Result Comment: Specimen Received d/t: 04/11/2024 00:06:00 Lab test performed by: [facility] [employer] [facility] [employer] [phone] Claudio MD 23Result Comment: Specimen Received d/t: 04/11/2024 00:06:00 Lab test performed by: [facility] [employer] [phone] Claudio MD 24Result Comment: The analytical performance characteristics of this assay, when used to test SurePath(TM) specimens have been determined by [employer]. The modifications have not been cleared or approved by the FDA. This assay has been validated pursuant to the CLIA regulations and is used for clinical purposes. For additional information, please refer to https://education.[employer]/faq/JCD988 (This link is being provided for information/ educational purposes only.) Specimen Received d/t: 04/11/2024 00:06:00 Lab test performed by: [facility] [employer] [phone] Claudio MD 25Result Comment: Specimen Received d/t: 04/11/2024 00:06:00 Lab test performed by: [facility] [address] Cecil Claudio MD 26Result Comment: Specimen Received d/t: 04/11/2024 00:06:00 Lab test performed by: [facility] [address] [phone] Claudio MD 27Result Comment: For someone without known diabetes, a hemoglobin A1c value of 6.5% or greater indicates that they may have diabetes and this should be confirmed with a follow-up test. For someone with known diabetes, a value <7% indicates that their diabetes is well controlled and a value greater than or equal to 7% indicates suboptimal control. A1c targets should be individualized based on duration of diabetes, age, comorbid conditions, and other considerations. Currently, no consensus exists regarding use of hemoglobin A1c for diagnosis of diabetes for children. Specimen Received d/t: 04/11/2024 00:06:00 Lab test performed by: [facility] [employer] [address] [place] [address] Eddie Claudio MD 28Result Comment: Specimen Received d/t: 04/11/2024 00:06:00 Lab test performed by: [facility] [employer] [address] [place] [address]Malorie Claudio MD 29Result Comment: If a non-fasting specimen was collected, consider repeat triglyceride testing on a fasting specimen if clinically indicated. Arjun et al. J. of Clin. Lipidol. 2015;9:129-169. Specimen Received d/t: 04/11/2024 00:06:00 Lab test performed by: [facility] [place] [address] Eddie Claudio MD 30Result Comment: For patients with diabetes plus 1 major ASCVD risk factor, treating to a non-HDL-C goal of <100 mg/dL (LDL-C of <70 mg/dL) is considered a therapeutic option. Specimen Received d/t: 04/11/2024 00:06:00 Lab test performed by: [facility] [employer] [address] [place] [address]Malorie Claudio MD 31Result Comment: Specimen Received d/t: 04/11/2024 00:06:00 Lab test performed by: [facility] [address] [place] [address]Malorie Claudio MD 32Result Comment: Specimen Received d/t: 04/11/2024 00:06:00 Lab test performed by: [facility] [employer] [address] [place] [address]Malorie Claudio MD 33Result Comment: Specimen Received d/t: 04/11/2024 00:06:00 Lab test performed by: [facility] [address] [place] [address]Malorie Claudio MD 34Result Comment: Reference range: <100 Desirable range <100 mg/dL for primary prevention; <70 mg/dL for patients with CHD or diabetic patients with > or = 2 CHD risk factors. LDL-C is now calculated using the Maria Luisa calculation, which is a validated novel method providing better accuracy than the Friedewald equation in the estimation of LDL-C. Mainor MORRIS et al. ONEAL. 2013;310(19): 4682-2945 (http://[employer]/faq/WWR935) Specimen Received d/t: 04/11/2024 00:06:00 Lab test performed by: [facility] [employer] [address] [place] [address] Eddie Claudio MD 35Result Comment: Specimen Received d/t: 04/11/2024 00:06:00 Lab test performed by: [facility] [employer] [address] [place] [address]Malorie Claudio MD 36Result Comment: Specimen Received d/t: 04/11/2024 00:06:00 Lab test performed by: [employer] [facility] [employer] [address] [place] [address]Malorie Claudio MD 37Result Comment: Specimen Received d/t: 04/11/2024 00:06:00 Lab test performed by: [facility] [employer] [address] [place] [address]Roland Claudio MD 38Result Comment: Fasting reference interval For someone without known diabetes, a glucose value between 100 and 125 mg/dL is consistent with prediabetes and should be confirmed with a follow-up test. Specimen Received d/t: 04/11/2024 00:06:00 Lab test performed by: [employer] [facility] [employer] [address] [place] [address]Malorie Claudio MD 39Result Comment: Specimen Received d/t: 04/11/2024 00:06:00 Lab test performed by: [employer] [facility] [employer] [address] [place] [address]Malorie Claudio MD 40Result Comment: Specimen Received d/t: 04/11/2024 00:06:00 Lab test performed by: [facility], [facility] [employer] [address] [place] [address] Eddie Claudio MD 41Result Comment: Specimen Received d/t: 04/11/2024 00:06:00 Lab test performed by: [facility], [facility] [employer] [address] [place] [address] Eddie Claudio MD Vital Signs Most recent to oldest [Reference Range]: 1 Patient Weight 155.9 kg (04/10/24 9:34 AM) Heart Rate 76 bpm (04/10/24 9:34 AM) Respiratory Rate 20 br/min (04/10/24 9:34 AM) Blood Pressure 132/80mmHg (04/10/24 9:34 AM) Cuff Pulse Pressure 52 mmHg (04/10/24 9:34 AM) BP Location # 1 Right Arm (04/10/24 9:34 AM) Social History Social History Type Response Smoking Status Never smoked cigaret bernice Sex Male Sex Representation Male (finding) FCM Outpt Note * JESUS Villanueva, Justina Evans: PERFORM Event Display: FCM Outpt Note Authored Date: Chief Complaint follow up, discuss constipation and bloating, unsure when last BM was History of Present Illness Darin presents for follow-up of type 2 diabetes, hyperlipidemia, hypertension, chronic goutand history of PE/DVT. Last clinic note from August 2023 was reviewed today. "I'm bloated and constipated."Darin has hadintermittent constipation for the lastyear. Has times when he has a BM daily and other times can go days without 1. Most recently had a BM 5 to 6 days ago. Hasabdominal bloating, fullness andadmits he hasnot been able to pass gas in thelast few days. Has some sensitivity/discomfort at left upper quadrant of his abdomen, but no overt pain. Has tried takingGas-Xand did tryEx-Lax 1 day without improvement.Last colonoscopy was in nd is due to repeat again in 5 years due tohaving tubular adenomas removed. No fever, chills, nausea, vomiting, melena, hematochezia, back or flank pain. Type 2 diabetes with long-term use of insulin is chronic and stable. A1c completed in August2023 was 7%. Checks glucose fasting in the a.m. thatconsistently runs around 130. Glucose [id number] this morning. Continues on Basaglar 20 unitstwice daily and metformin 500 mg twice daily. Tries to followa low sugar diet. Getting annual eye exams. No EtOH, tobacco or recreational drug use. No regular exercise.+ chronic numbness/tingling atdistal legs and feet x 6 months.No polyuria, polydipsia, polyphagia, poor healing wounds, foot ulcerations, blurred vision, loss of vision, palpitations, tachycardia, loss of balance or falls. HTN without CHF is chronic.Does not check BP at home. Compliant with lisinopril 5 mg daily. Seesocial hx as above. 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 Remains on chronic anticoagulation with warfarin for history of recurrent DVT.Compliant withwarfarin that is managed by our office and has been getting his INR checked every 1 to 2 weeks as INR was off when he had been taking antibiotics a couple of months ago. No calf pain, melena, hematochezia, pallor, petechial rashes, hematuria, epistaxis, chest pain, or palpitations. Chronic gout had been stable. Can't recall when he last had a flare.Takes colchicine as needed. At one time he was on allopurinol, but discontinued the medication. "I think I have an STD. I have a couple of lumps there that are bleeding." Darin started to notice thathe hada red rash that was at times bumpyon his groin, perineumand penis. Has hadwhat he thought were blisters that were bleeding as well. Symptoms have been presentfairly per sistentlyfor at least the last few months or longer. Skin at groin has at times been itchyandsays "itwas thinking bad down there like rottenmeat."He started bathinga few times a day and feels like the smell has improved, but still has areas that arebleeding. He has not been sexually active in the last 9 to 12 monthsand no new sexual partners. Wonders if he has genital warts. No dysuria, penile discharge, testicular pain or testicular masses. Review of Systems ROS:All other systems negative, except HPI. Physical Exam Vitals & Measurements HR:76(Monitored) RR:20 BP:132/80 SpO2:95% WT:155.900kg(Dosing) WT:155.9kg PHQ2 Data(Data Documented on:04/10/2024 09:34) Emotional health assessment NEGATIVE General: Alert and oriented, No acute distress.Pleasant.Morbidly obese. Eye: Pupils are equal, round and reactive to light, Extraocular movements are intact, Normal conjunctiva. HENT: Normocephalic. Posterior pharynx is pink. Uvula rises midline. No drooling, stridor or cyanosis. Neck: Supple, No lymphadenopathy, No thyromegaly. Respiratory: Lungs are clear to auscultation, Respirations are non-labored, Breath sounds are equal, Symmetrical chest wall expansion. Cardiovascular: Normal rate, Regular rhythm, No murmur, No gallop, Good pulses equal in all extremities, Normal peripheral perfusion. No LE edema. Abdomen: Normoactive BS x 4. Obese, distended. + tenderness and palpable fullness at LUQ. No guarding, rebound, palpable masses or organomegaly. Genitourinary:Genital exam was performed with freight agent, Shayy Lyn LPN present.Penis is circumcised. There is diffuseerythemathat varies from bright todark in color atbilateral inguinal folds extending to proximalthighsand perineum. Right and left groin do have superficial ulcerations that are actively bleeding. There are a few skin tags visible at left groin and perineum. Skin tags first condyloma present at left testicle. Penis is withsome dryness andlighterythema. No penile discharge orobvious odor.No penile ulcerations. Lymphatics: No submandibular, anterior or posterior cervical adenopathy palpable. Musculoskeletal Normal gait. FROM and 5/5 strength at BLE and BUE. Integumentary: Warm, [place], No pallor. Neurologic: Alert, Oriented, Cranial Nerves II-XII are grossly intact. Cognition and Speech: Oriented, Speech clear and coherent, Functional cognition intact. Psychiatric: Cooperative, Appropriate mood & affect, Normal judgment, Nonsuicidal. Assessment/Plan 1.Benign hypertension without congestive heart failure Benign hypertension without congestive heart failure is chronic and well- controlled. Goal SBP <130 and DBP <80 mmHg. Continue lisinopril 5 mg, 1 tab p.o. daily. Follow-up again in 6 months. Updated CMP and lipid profile ordered today. 2.History of pulmonary embolus (PE) History of pulmonary embolism and recurrent DVTare managed with chronic anticoagulation with use of warfarin. To continue gettingINR checks weekly to every 4 weeks based onlevels. No signs of symptoms of bleeding. 3.History of recurrent deep vein thrombosis (DVT) As above in #2. 4.state inspector current use of anticoagulant As above in #2. 5.Type 2 diabetes mellitus, with long-term current use of insulin Type 2 diabetes with long-term use of insulin is chronic and well-controlled. Goal A1c is <7%. Labs reviewed from August 2023 show A1c of 7%. Continue metformin 500 mg, 1 tab p.o. twice daily and Basaglar 20 units twice daily. Continue home glucose monitoring. Updated A1c, lipid profile, TSH, CMP and urine microalbumin ordered. Continue annual diabetic eye exams as well. 6.Acute constipation Patient has had acute constipation and inability to passflatusin the last 5 to 6 days. Goalis resolution of symptoms. Abdominal x-rayordered. Recommend trial of eitherMiraLAX, 1 capful dissolved in 48 ounces of liquiddaily until having a BM or may trysennosides 8.6 mg, 2 tabs p.o. daily to twice dailyas needed for constipation. Advised to seek care at the ER if he is still unable to move bowels, develops any severe abdominal pain, vomiting, feveror new symptoms. Patient agreed. 7.Unable to pass flatus As above in #6. 8.Intertrigo Patient has what appears to be Stefanie intertrigo with some open lesionsat bilateral inguinal folds, which has been uncontrolled. Area wascultured and sent forfungal culture. Treat empirically with ketoconazole 2% cream applied daily to twice dailyfor 2 to 4 weeks and was also given fluconazole 200 mg, 1 tab p.o. daily x 2 weeks. Advised patient to hold his cholesterol medication while taking fluconazole and avoidEtOH intake. Recommend close follow-up if symptoms are not improving after 2 weeks, worsen or change. Declines toschedule follow-up at this time. 9.Skin ulcer As above in #8. 10.Screening examination for STI STI screening counseled and ordered today. Time spent on pre-visit plannin minutes on chart review Face to face time spent w/ patient: 31 minutes Time spent documenting pertinent clinical information into the EMR:22 minutes Total time: 55 minutes Problem List/Past Medical History Ongoing Arthralgia Arthritis of right acromioclavicular joint Basal cell carcinoma of eyelid Benign hypertension without congestive heart failure Diverticulitis Dysphagia Effusion, right knee Elevated homocysteine Eosinophilic esophagitis Fecal urgency GERD (gastroesophageal reflux disease) GERD without esophagitis Gout History of pulmonary embolus (PE)| Status: Inactive History of recurrent deep vein thrombosis (DVT) Irregular heartbeat Joint pain due to Lyme disease Kidney stones Left shoulder pain LLQ pain alf current use of anticoagulant CHERYL (obstructive sleep apnea) Rectal fissure Reflux Tinea unguium Toenail fungus Type 2 diabetes mellitus, with long-term current use of insulin Weight disorder Resolved Acute diarrhea Acute ear pain Acute gout Acute pain of right knee Acute pulmonary embolus Acute upper respiratory infection Acute Venous Embolism and Thrombosis of Unspecified Deep Vessels of Lower Extremity Anal fissure Ankle pain, right Bleeding hemorrhoid Bleeding hemorrhoid Bleeding hemorrhoid Bright red blood per rectum Bright red rectal bleeding Chest tightness Clinical diagnosis of COVID-19 Constipation due to pain medication Cough Fever Fracture of left clavicle Insect bite (nonvenomous) of right forearm, initial encounter Intercostal muscle strain Knee pain, right Pain, rectal PND (post-nasal drip) Sinus congestion Sinusitis Sternoclavicular sprain Tobacco abuse Tobacco user Trapezius strain Urinary retention Procedure/Surgical History CT of chest| Service Date: 09/22/2023Laboratory findings data interpretation| Service Date: 12/30/2022T of abdomen and pelvis| Service Date: 12/30/2022Laboratory findings data interpretation| Service Date: 12/17/2022INCISION OF ANAL SPHINCTER| Service Date: 11/19/2022Upper GI (gastrointestinal) endoscopy| Service Date: 11/18/2022olonoscopy| Service Date: 11/18/2022Ultrasound scan of parotid gland| Service Date: 07/30/2022T angiography of chest with contrast| Service Date: 2Chest X-ray| Service Date: 01/02/2021Upper GI endoscopy| Service Date: 01/18/2019Polysomnograph| Service Date: 01/13/2018Diagnostic endoscopic examination of esophagus and biopsy of lesion of esophagus using rigid esophagoscope| Service Date: 06/02/2016Full sleep study| Service Date: 01/03/2016Ultrasound scan of abdomen and pelvis| Service Date: 07/18/2015Venous ultrasound right lower extremity| Service Date: 04/12/2015Colonoscopy| Service Date: 11/12/2014R knee; L eyelid: cancerDoppler ultrasonography (US) of vein of lower limb-right legAspira tion of joint Medications albuterol(albuterol CFC free 90 mcg/inh MDI), 2 puff, inhaled, qid, PRN atorvastatin(atorvastatin 40 mg oral tablet), 1 tab, PO, Daily colchicine(colchicine 0.6 mg oral tablet), See Instructions, 5 refills dicyclomine(Bentyl 10 mg oral capsule), 10 mg= 1 cap, PO, tid, 1 refills fluconazole(fluconazole 200 mg oral tablet), 200 mg= 1 tab, PO, Daily insulin glargine(Basaglar KwikPen 100 units/mL subcutaneous solution), 20 unit, subQ, bid ketoconazole topical(ketoconazole 2% topical cream), 1 appl, topical, bid lisinopril(lisinopril 5 mg oral tablet), 1 tab, PO, Daily metFORMIN(metFORMIN 500 mg oral tablet), 2 tab, PO, bid syringe needles(BD needle Ultra-Fine Pen Contreras 32G x 4mm), See Instructions, 1 refills unlisted medication(BD PEN NEEDLE/CONTRERAS [id number] MIS), See Instructions unlisted medication(Diltiazem 2% ointment), See Instructions warfarin(warfarin 7.5 mg oral tablet), 2 tab, PO, Daily Allergies NKA Social History Smoking Status Never smoked cigarettes Alcohol - Denies Alcohol Use Tobacco - Denies Tobacco Use Family History Cancer: Unknown. Diabetes: Mother. Gout: Mother. High Blood Pressure: Mother. Health Status Family Member(s) Father: History is negative Immunizations Vaccine Date Status SARS-CoV-2 (COVID-19) mRNA-1273 vaccine 11/12/2020 Recorded Comments : 2022-08-05: Historical information-source unspecified SARS-CoV-2 (COVID-19) mRNA-1273 vaccine 10/30/2020 Recorded Comments : 2022-04-28: Historical information-source unspecified SARS-CoV-2 (COVID-19) mRNA BNT-162b2 vax 10/25/2020 Recorded Comments : 2022-04-28: Historical information-source unspecified SARS-CoV-2 (COVID-19) mRNA-1273 vaccine 10/09/2020 Recorded Comments : 2022-04-28: Historical information-source unspecified zoster vaccine, inactivated 03/19/2020 Recorded Comments : 2022-04-28: Historical information-source unspecified zoster vaccine, inactivated 08/17/2019 Recorded Comments : 2022-04-28: Historical information-source unspecified tetanus/diphtheria/pertuss, acel (Tdap) 05/20/2015 Recorded Comments : 2022-04-28: Historical information-source unspecified hepatitis B adult vaccine 04/26/2015 Recorded Comments : 2022-04-28: Historical information-source unspecified hepatitis B adult vaccine 03/26/2015 Recorded Comments : 2022-04-28: Historical information-source unspecified pneumococcal 23-valent vaccine 03/10/2006 Recorded Comments : 2022-04-28: Historical information-source unspecified Recommendations Health Maintenance Pending(in the next year) OverDue Adult Influenza Vaccine due01/09/24and every 1year Body Mass Index due01/14/24and every 366day Due Adult COVID-19 Vaccination due04/11/24Unknown Frequency Adult Social Determinants of Health Screening due04/11/24Unknown Frequency Pneumococcal Vaccine Adults and Adolescents with Chronic Illness due04/11/24One-time only Satisfied(in the past 1 year) Satisfied Diabetes Management A1c on05/11/23.Satisfied by Contributor_system, [email or web address] Diabetes Nephropathy Management on05/11/23.Satisfied by Contributor_system, [email or web address] Diabetic Eye Exam on12/02/23.Satisfied by KIANNA Tucker Andrew E Hepatitis C Screening on04/10/24.Satisfied by Contributor_system, [email or web address] Lipid Screening on05/11/23.Satisfied by Contributor_system, [email or web address] Lab Results Test Name Test Result Date/Time Na-Quest 142 mmol/L 09/03/2023 10:55 EST K-Quest 4.3 mmol/L 09/03/2023 10:55 EST Cl-Quest 107 mmol/L 09/03/2023 10:55 EST CO2-Quest 27 mmol/L 09/03/2023 10:55 EST BUN-Quest 17 zzzmg/dL 09/03/2023 10:55 EST Creatinine-Quest 1.24 zzzmg/dL 09/03/2023 10:55 EST BUN/Creat Ratio-Quest SEE NOTE: 09/03/2023 10:55 EST Ca-Quest 9.5 zzzmg/dL 09/03/2023 10:55 EST eGFR-QST 67 mL/min/1.73m2 09/03/2023 10:55 EST Glucose-Qst 140 zzzmg/dL 09/03/2023 10:55 EST HbA1c 7.0 % of total Hgb 09/03/2023 10:55 EST eAG (mg/dL) 154 zzzmg/dL 09/03/2023 10:55 EST eAG (mmol/L) 8.5 mmol/L 09/03/2023 10:55 EST Uric Acid-Quest 6.8 zzzmg/dL 09/03/2023 10:55 EST Vitamin W02-Luknv 759 pg/mL 09/03/2023 10:55 EST Electronic Signature on File Electronically Reviewed/Signed by: Justina Villanueva PA-C,MPAS Author Signature Dt/Tm::28 PM Physician Gallery Or Museum Technician [facility] [address] [address] [place] Patient Care team information Care Team Personnel Name: HANNA Jones Tara Position: Nurse Pract - Family Med Member Role: Lifetime Relationship Address: [address] [place] [address] [place] Name: MD Lau Amy L Position: Physician - Family Med Member Role: Primary Care Provider Address: [address] [place] [address] [place] Name: Herve Álvarez Francis Position: Pharmacist Schedule II Member Role: Pharmacy - Lifetime Address: [facility] [address] [place] [address] [place] Care Team Related Persons Name: JEFFREY ALSTON
--- OUTSIDE RECORDS SUMMARY | 2024-07-17 05:18 | External Medical Summary | Continuity of Care Document ---
Author Name Unknown Organization [place] [address] [address] [place] [id number] Care Team Providers Care Wash Mill Operator Name Role Phone Marimar Lau Primary Care Physician [phone] Encounter [id number] Date(s): 04/17/24 - 04/17/24 [facility] [address] [facility] [address] [address] [place] [phone] Encounter Diagnosis Personal history of other venous [...] PRN: as needed for wheezing, Pharmacy: [facility] Start Date: 10/31/21 Stop Date: 11/30/21 Status: Ordered atorvastatin 40 mg oral tablet Start: 10/18/23 8:49:00 AM EDT, 1 tab, PO, Daily, Disp# 30 tab, Refills: 11, Pharmacy: [facility] 16[facility] Start Date: 10/18/23 Status: Ordered Basaglar KwikPen 100 units/mL subcutaneous solution Start: 03/01/24 7:48:00 AM EDT, 22 unit =, subQ, bid, Disp# 12 mL, Refills: 3, Pharmacy: [facility] 16[facility] Start Date: 03/01/24 Status: Ordered BD needle Ultra-Fine Pen Charline 32G x 4mm Start: 05/09/21 12:04:00 PM EDT, See Instructions, Disp# 100 each, Refills: 1, Use to inject insulin twice daily and 3 times daily PRN per sliding scale, Note to Pharmacy: ICD-10: E11.9, Pharmacy: [facility]/pharmacy #[id number] Start Date: 05/09/21 Status: Ordered BD PEN NEEDLE/CHARLINE [id number] MIS BD PEN NEEDLE/CHARLINE [id number] MIS, See Instructions, Disp# 100 each, Refills: 5, USE TO INJECT INSULINTWICE TO THREE TIMES DAILY NEEDED PER SLIDING SCAN, Pharmacy [facility] Start Date: 07/25/21 Status: Ordered Bentyl 10 mg oral capsule Start: 12/04/22 11:24:00 AM EDT, 1 cap, PO, tid, Disp# 42 cap, Refills: 1, Pharmacy: [facility] [id number] Start Date: 12/04/22 Stop Date: 01/01/23 Status: Ordered colchicine 0.6 mg oral tablet Start: 08/26/23 8:28:00 PM EST, See Instructions, Disp# 30 tab, Refills: 5, TAKE 2 TABLETS BY MOUTH AT THE FIRST SIGN OF A GOUT FLARE, FOLLOWED BY 1 TABLET 1 HOUR LATER, Pharmacy: [facility] [id number] Start Date: 08/26/23 Status: Ordered Diltiazem 2% ointment Start: 10/26/22 1:59:00 PM EDT, Diltiazem 2% ointment, eRx Product Type: Compound, See Instructions,Disp# 30 g, Refills: 0, Apply ointment with gloved index finger to external anus three times a day,Pharmacy [facility] Start Date: 10/26/22 Status: Ordered fluconazole 200 mg oral tablet Start: 04/10/24 10:20:00 AM EDT, 1 tab, PO, Daily, Disp# 14 tab, X 14 day, Stop: 04/24/24 10:20:00 AM EDT, Pharmacy: [place] [facility] [id number] Start Date: 04/10/24 Stop Date: 04/24/24 Status: Ordered ketoconazole 2% topical cream Start: 04/10/24 10:20:00 AM EDT, 1 appl, topical, bid, Disp# 60 g, apply to groin and genital region/folds, Pharmacy: [facility] [id number] Start Date: 04/10/24 Stop Date: 04/24/24 Status: Ordered lisinopril 5 mg oral tablet Start: 10/18/23 8:49:00 AM EDT, 1 tab, PO, Daily, Disp# 30 tab, Refills: 11, Pharmacy: [facility] [id number] Start Date: 10/18/23 Status: Ordered metFORMIN 500 mg oral tablet Start: 01/10/24 10:05:00 AM EDT, 2 tab, PO, bid, Disp# 120 tab, Refills: 3, Pharmacy: [facility] [id number] Start Date: 01/10/24 Status: Ordered warfarin 7.5 mg oral tablet Start: 12/07/23 7:05:00 AM EDT, 2 tab, PO, Daily, Disp# 60 tab, Refills: 5, Pharmacy: [facility] Start Date: 12/07/23 Status: Ordered Problem [...] stones Confirmed Active LLQ pain Confirmed Active shelter current use of anticoagulant Confirmed Active Joint [...] eted R knee; L eyelid: cancer Completed [address] [place], [place] [address]Bones Degenerative changes in the thoracic spine IMPRESSION [...] months time is recommended for reassessment 10[facility] Impression: 1. Mild cardiomegaly. No acute occlusive [...] 13cm. Small right renal peripelvic cysts. 16[facility] Impression: 1.There is nearly occlusive deep venous [...] invasive carcinoma seen. 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 This is unchanged in destribution and extent as compared to the prior study. No new or interval change. Results Laboratory List Name Date Prothrombin Time w/ INR (PROTIME WITH IN R) 04/17/24 Most recent to oldest [Reference Range]: 1 INR [0.9-1.1] 4.9 1 *HI* (04/17/24 9:45 AM) PT [12.0-14.2 seconds] 44.3 seconds *HI* (04/17/24 9:45 AM) 1Result Comment: Suggested therapeutic range for low-intensity Coumadin therapy for venous thromboembolism is INR 2.0-3.0 (ex: atrial fibrillation, history of TIA/stroke). For high risk patients, the suggested therapeutic range is INR 2.5-3.5 (ex: mechanical prosthetic valves). Testing Performed By: Dept of Pathology [facility], [address] [place] [id number] Social History Social History Type Response Smoking Status Never smoked cigaret bernice Sex Male Sex Representation Male (finding) Patient Care team information Care Team Personnel Name: HANNA Jones Tara Position: Nurse Pract - Family Med Member Role: Lifetime Relationship Address: [address] [place] [id number] [place] Name: MD Lau Amy L Position: Physician - Family Med Member Role: Primary Care Provider Address: [address] [place] [address] [place] Name: Herve Álvarez Francis Position: Pharmacist Schedule II Member Role: Pharmacy - Lifetime Address: [facility] [address] [place] [phone] [place] Care Team Related Persons Name: JEFFREY ALSTON
--- OUTSIDE RECORDS SUMMARY | 2024-07-17 05:18 | External Medical Summary ---
Author Name Unknown Address Unknown Organization : Laboratory Report Ordering Provider Test Date Status Boaz Hornkeeosman 04/10/2024 10:38:00 Final Observation Date Value Abnormality Reference (Units ) Status Hepatitis B virus surface Ag [Presence] in Serum or Plasma by Immunoassay 04/11/2024 12:25:00 NON-REACTIVE NON-REACTIVE Final
For additional informat ion, please refer to
http://education.Scopelec/faq/BDX395
(This link is being provided for informational/
educational purposes only.)

Specimen Received d/t: 04/11/2024 00:06:00

Lab test performed by:
[facility]
[address]
[place] [phone]
Eddie Claudio MD Performing Location
--- OUTSIDE RECORDS SUMMARY | 2024-07-17 05:18 | External Medical Summary ---
Author Name Unknown Address Unknown Organization : Laboratory Report Ordering Provider Test Date Status JustinaKay 04/10/2024 10:22:00 Final Observation Date Value Abnormality Reference (Units ) Status Fungus(Hair,Skin,Yudith ls)Cx 05/09/2024 11:35:00 See Result Comment Final CULTURE,FUNGUS,SKIN,HAIR, NA IL W/DIRECT FLUOR/DARCI

Micro Number: [id number]
Test Status: Final
Specimen Source: Left groin
Specimen Quality: Adequate
Smear: No fungal elements seen.

Result: No fungal growth at 4 Weeks

Specimen Received d/t: 04/10/2024 23:37:00

Lab test performed by:
[facility]
[address]
[place] [phone]
Eddie Claudio MD Performing Location
--- OUTSIDE RECORDS SUMMARY | 2024-07-17 05:18 | External Medical Summary | Continuity of Care Document ---
Author Name Unknown Organization [place] [address] [place] [phone] Care Team Providers Care Silverware Etcher Name Role Phone Marimar Lau Primary Care Physician [phone] Encounter [facility] [id number] Date(s): 05/08/24 - 05/08/24 [facility] 207 [facility] [address] [phone] Encounter Diagnosis Personal history of other venous [...] PRN: as needed for wheezing, Pharmacy: [facility] 1639 Start Date: 10/31/21 Stop Date: 11/30/21 Status: Ordered atorvastatin 40 mg oral tablet Start: 10/18/23 8:49:00 AM EDT, 1 tab, PO, Daily, Disp# 30 tab, Refills: 11, Pharmacy: [facility] 1639 Start Date: 10/18/23 Status: Ordered Basaglar KwikPen 100 units/mL subcutaneous solution Start: 03/01/24 7:48:00 AM EDT, 22 unit =, subQ, bid, Disp# 12 mL, Refills: 3, Pharmacy: [facility] 1639 Start Date: 03/01/24 Status: Ordered BD needle Ultra-Fine Pen Charline 32G x 4mm Start: 05/09/21 12:04:00 PM EDT, See Instructions, Disp# 100 each, Refills: 1, Use to inject insulin twice daily and 3 times daily PRN per sliding scale, Note to Pharmacy: ICD-10: E11.9, Pharmacy: [facility]/pharmacy #[id number] Start Date: 05/09/21 Status: Ordered BD PEN NEEDLE/CHARLINE [id number] MIS BD PEN NEEDLE/CHARLINE [id number] MIS, See Instructions, Disp# 100 each, Refills: 5, USE TO INJECT INSULINTWICE TO THREE TIMES DAILY NEEDED PER SLIDING SCAN, Pharmacy [facility] 1639 Start Date: 07/25/21 Status: Ordered Bentyl 10 mg oral capsule Start: 12/04/22 11:24:00 AM EDT, 1 cap, PO, tid, Disp# 42 cap, Refills: 1, Pharmacy: [place] [id number] Start Date: 12/04/22 Stop Date: 01/01/23 Status: Ordered colchicine 0.6 mg oral tablet Start: 08/26/23 8:28:00 PM EST, See Instructions, Disp# 30 tab, Refills: 5, TAKE 2 TABLETS BY MOUTH AT THE FIRST SIGN OF A GOUT FLARE, FOLLOWED BY 1 TABLET 1 HOUR LATER, Pharmacy: [place] [id number] Start Date: 08/26/23 Status: Ordered Diltiazem 2% ointment Start: 10/26/22 1:59:00 PM EDT, Diltiazem 2% ointment, eRx Product Type: Compound, See Instructions,Disp# 30 g, Refills: 0, Apply ointment with gloved index finger to external anus three times a day,Pharmacy [facility] Start Date: 10/26/22 Status: Ordered ketoconazole 2% topical cream Start: 04/10/24 10:20:00 AM EDT, 1 appl, topical, bid, Disp# 60 g, apply to groin and genital region/folds, Pharmacy: [place] [id number] Start Date: 04/10/24 Stop Date: 04/24/24 Status: Ordered lisinopril 5 mg oral tablet Start: 10/18/23 8:49:00 AM EDT, 1 tab, PO, Daily, Disp# 30 tab, Refills: 11, Pharmacy: [place] [id number] Start Date: 10/18/23 Status: Ordered metFORMIN 500 mg oral tablet Start: 01/10/24 10:05:00 AM EDT, 2 tab, PO, bid, Disp# 120 tab, Refills: 3, Pharmacy: [place] [id number] Start Date: 01/10/24 Status: Ordered warfarin 7.5 mg oral tablet Start: 12/07/23 7:05:00 AM EDT, 2 tab, PO, Daily, Disp# 60 tab, Refills: 5, Pharmacy: [place] [id number] Start Date: 12/07/23 Status: Ordered Problem List [...] stones Confirmed Active LLQ pain Confirmed Active senior care current use of anticoagulant Confirmed Active Joint [...] eted R knee; L eyelid: cancer Completed [address] [place], [place] [address]Bones 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 Mild cardiomegaly. No [...] 13cm. Small right renal peripelvic cysts. 16[facility] Impression: 1.There is nearly occlusive [...] invasive carcinoma seen. 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 This is unchanged in destribution and extent as compared to the prior study. No new or interval change. Results Laboratory List Name Date Prothrombin Time w/ INR (PROTIME WITH IN R) 05/08/24 Most recent to oldest [Reference Range]: 1 INR [0.9-1.1] 2.8 1 *HI* (05/08/24 10:19 AM) PT [12.0-14.2 seconds] 29.5 seconds *HI* (05/08/24 10:19 AM) 1Result Comment: Suggested therapeutic range for low-intensity Coumadin therapy for venous thromboembolism is INR 2.0-3.0 (ex: atrial fibrillation, history of TIA/stroke). For high risk patients, the suggested therapeutic range is INR 2.5-3.5 (ex: mechanical prosthetic valves). Testing Performed By: Dept of Pathology [facility], [address] [place] [id number] Social History Social History Type Response Smoking Status Never smoked cigaret bernice Sex Male Sex Representation Male (finding) Patient Care team information Care Team Personnel Name: HANNA Jones Tara Position: Nurse Pract - Family Med Member Role: Lifetime Relationship Address: [address] [place] [phone] [place] Name: MD Sid, Marimar Neff Position: Physician - Family Med Member Role: Primary Care Provider Address: [address] [place] [address] [place] Name: Herve Álvarez Francis Position: Pharmacist Schedule II Member Role: Pharmacy - Lifetime Address: [facility] [address] [place] [address] [place] Care Team Related Persons Name: JEFFREY ALSTON
--- OUTSIDE RECORDS SUMMARY | 2024-07-17 05:18 | External Medical Summary ---
Author Name Unknown Address Unknown Organization : Laboratory Report Ordering Provider Test Date Status Kay Horn 04/10/2024 10:38:00 Final Observation Date Value Abnormality Reference (Units ) Status [facility] 04/11/2024 12:25:00 NON-REACTIVE NON-R EACTIVE Final
For additional informat ion, please refer to
http://education.[email or web address]/faq/[email or web address]
(This link is being provided for informational/
educational purposes only.)

Specimen Received d/t: 04/11/2024 00:06:00

Lab test performed by:
[facility]
[address]
[place] [address]
Eddie Claudio MD Performing Location
--- OUTSIDE RECORDS SUMMARY | 2024-07-17 05:18 | External Medical Summary | Continuity of Care Document ---
Author Name Unknown Organization [place] [address] [place] [address] [phone] Care Team Providers Care Bolt Sorter Name Role Phone Marimar Lau Primary Care Physician [phone] Encounter [facility] [id number] Date(s): 03/24/24 - 03/24/24 [facility] 1850 [facility] 207 [facility] [address] [address] [place] [phone] Encounter Diagnosis Personal history of other venous [...] as needed for wheezing, Pharmacy: [facility] 1639 Start Date: 10/31/21 Stop Date: 11/30/21 Status: Ordered atorvastatin 40 mg oral tablet Start: 10/18/23 8:49:00 AM EDT, 1 tab, PO, Daily, Disp# 30 tab, Refills: 11, Pharmacy: [facility] 1639 Start Date: 10/18/23 Status: Ordered Basaglar KwikPen 100 units/mL subcutaneous solution Start: 03/01/24 7:48:00 AM EDT, 20 unit =, subQ, bid, Disp# 12 mL, Refills: 3, Pharmacy: [facility] 1639 Start Date: 03/01/24 Status: Ordered BD needle Ultra-Fine Pen Charline 32G x 4mm Start: 05/09/21 12:04:00 PM EDT, See Instructions, Disp# 100 each, Refills: 1, Use to inject insulin twice daily and 3 times daily PRN per sliding scale, Note to Pharmacy: ICD-10: E11.9, Pharmacy: [facility]/pharmacy #[id number] Start Date: 05/09/21 Status: Ordered BD PEN NEEDLE/CHARLINE [id number] MIS BD PEN NEEDLE/CHARLINE [id number] MIS, See Instructions, Disp# 100 each, Refills: 5, USE TO INJECT INSULINTWICE TO THREE TIMES DAILY NEEDED PER SLIDING SCAN, Pharmacy [facility] 1639 Start Date: 07/25/21 Status: Ordered Bentyl 10 mg oral capsule Start: 12/04/22 11:24:00 AM EDT, 1 cap, PO, tid, Disp# 42 cap, Refills: 1, Pharmacy: [facility] 1639 Start Date: 12/04/22 Stop Date: 01/01/23 Status: Ordered colchicine 0.6 mg oral tablet Start: 09/30/21 4:11:00 PM EDT, See Instructions, Disp# 30 tab, Refills: 5, Take 2 tabs PO at the first sign of a gout flare followed by 1 tab one hour later, Pharmacy: [facility] 1639 Start Date: 09/30/21 Status: Ordered colchicine 0.6 mg oral tablet Start: 08/26/23 8:28:00 PM EST, See Instructions, Disp# 30 tab, Refills: 5, TAKE 2 TABLETS BY MOUTH AT THE FIRST SIGN OF A GOUT FLARE, FOLLOWED BY 1 TABLET 1 HOUR LATER, Pharmacy: [place] [id number] Start Date: 08/26/23 Status: Ordered Diltiazem 2% ointment Start: 10/26/22 1:59:00 PM EDT, Diltiazem 2% ointment, eRx Product Type: Compound, See Instructions,Disp# 30 g, Refills: 0, Apply ointment with gloved index finger to external anus three times a day,Pharmacy [facility] Start Date: 10/26/22 Status: Ordered Fish Oil 1000 mg oral capsule Start: 02/03/21 8:39:00 AM EDT, 1 cap, PO, bid, Disp# 60 cap, Refills: 5, Pharmacy: [address] Start Date: 02/03/21 Status: Ordered lisinopril 5 mg oral tablet Start: 10/18/23 8:49:00 AM EDT, 1 tab, PO, Daily, Disp# 30 tab, Refills: 11, Pharmacy: [facility] 1639 Start Date: 10/18/23 Status: Ordered Metamucil Start: 12/04/22 10:54:00 AM EDT, 2 tablespoons mixed with fluid po daily Start Date: 12/04/22 Status: Ordered metFORMIN 500 mg oral tablet Start: 01/10/24 10:05:00 AM EDT, 2 tab, PO, bid, Disp# 120 tab, Refills: 3, Pharmacy: [place] [id number] Start Date: 01/10/24 Status: Ordered Pepcid 20 mg oral tablet Start: 01/13/23 11:36:00 AM EDT, 1 tab, PO, bid, Disp# 60 tab, Refills: 7, Pharmacy: [id number] Start Date: 01/13/23 Status: Ordered warfarin 7.5 mg oral tablet Start: 12/07/23 7:05:00 AM EDT, 2 tab, PO, Daily, Disp# 60 tab, Refills: 5, Pharmacy: [facility] Start Date: 12/07/23 [...] Confirmed Active LLQ pain Confirmed Active senior living current use of anticoagulant Confirmed Active Joint [...] R knee; L eyelid: [facility] IM[facility] [...] months time is recommended for reassessment 10[facility] Impression: 1. Mild cardiomegaly. No acute [...] 13cm. Small right renal peripelvic cysts. 16[facility] Impression: 1.There is nearly occlusive deep [...] invasive carcinoma seen. 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 This is unchanged in destribution and extent as compared to the prior study. No new or interval change. Results Laboratory List Name Date Prothrombin Time w/ INR (PROTIME WITH IN R) 03/24/24 Most recent to oldest [Reference Range]: 1 INR [0.9-1.1] 2.8 1 *HI* (03/24/24 10:26 AM) PT [12.0-14.2 seconds] 29.6 seconds *HI* (03/24/24 10:26 AM) 1Result Comment: Suggested therapeutic range for low-intensity Coumadin therapy for venous thromboembolism is INR 2.0-3.0 (ex: atrial fibrillation, history of TIA/stroke). For high risk patients, the suggested therapeutic range is INR 2.5-3.5 (ex: mechanical prosthetic valves). Testing Performed By: Dept of Pathology [facility], [address] [place] [address] Social History Social History Type Response Smoking Status Never smoked cigaret bernice Sex Male Sex Representation Male (finding) Patient Care team information Care Team Personnel Name: HANNA Jones Tara Position: Nurse Pract - Family Med Member Role: Lifetime Relationship Address: [address] [place] [address] [place] Name: MD Lau Amy L Position: Physician - Family Med Member Role: Primary Care Provider Address: [address] [place] [phone] [place] Name: Herve Álvarez Francis Position: Pharmacist Schedule II Member Role: Pharmacy - Lifetime Address: [facility] [address] [place], [place] [address] [place] Care Team Related Persons Name: JEFFREY ALSTON
--- OUTSIDE RECORDS SUMMARY | 2024-07-17 05:18 | External Medical Summary | Continuity of Care Document ---
Author Name Unknown Organization [place] [address] [address] [place] [phone] Care Team Providers Care Electrician Substation Name Role Phone Marimar Lau Primary Care Physician [phone] [id number] Date(s): 05/29/24 - 05/29/24 [facility] 207 [facility] [address] [address] [place] [phone] Encounter Diagnosis Personal history of other venous [...] as needed for wheezing, Pharmacy: [facility] 1639 Start Date: 10/31/21 Stop Date: 11/30/21 Status: Ordered atorvastatin 40 mg oral tablet Start: 10/18/23 8:49:00 AM EDT, 1 tab, PO, Daily, Disp# 30 tab, Refills: 11, Pharmacy: [facility] 1639 Start Date: 10/18/23 Status: Ordered Basaglar KwikPen 100 units/mL subcutaneous solution Start: 03/01/24 7:48:00 AM EDT, 22 unit =, subQ, bid, Disp# 12 mL, Refills: 3, Pharmacy: [facility] 1639 Start Date: 03/01/24 Status: Ordered BD needle Ultra-Fine Pen Charline 32G x 4mm Start: 05/09/21 12:04:00 PM EDT, See Instructions, Disp# 100 each, Refills: 1, Use to inject insulin twice daily and 3 times daily PRN per sliding scale, Note to Pharmacy: ICD-10: E11.9, Pharmacy: [facility]/pharmacy #[id number] Start Date: 05/09/21 Status: Ordered BD PEN NEEDLE/CHARLINE [id number] MIS BD PEN NEEDLE/CHARLINE [id number] MIS, See Instructions, Disp# 100 each, Refills: 5, USE TO INJECT INSULINTWICE TO THREE TIMES DAILY NEEDED PER SLIDING SCAN, Pharmacy [facility] 1639 Start Date: 07/25/21 Status: Ordered Bentyl 10 mg oral capsule Start: 12/04/22 11:24:00 AM EDT, 1 cap, PO, tid, Disp# 42 cap, Refills: 1, Pharmacy: [place] [id number] Start Date: 12/04/22 Stop Date: 01/01/23 Status: Ordered colchicine 0.6 mg oral tablet Start: 08/26/23 8:28:00 PM EST, See Instructions, Disp# 30 tab, Refills: 5, TAKE 2 TABLETS BY MOUTH AT THE FIRST SIGN OF A GOUT FLARE, FOLLOWED BY 1 TABLET 1 HOUR LATER, Pharmacy: [place] [id number] Start Date: 08/26/23 Status: Ordered Diltiazem 2% [...] apply to groin and genital region/folds, Pharmacy: [place] [id number] Start Date: 04/10/24 Stop Date: 04/24/24 Status: Ordered lisinopril 5 mg oral tablet Start: 10/18/23 8:49:00 AM EDT, 1 tab, PO, Daily, Disp# 30 tab, Refills: 11, Pharmacy: [place] [id number] Start Date: 10/18/23 Status: Ordered metFORMIN 500 mg oral tablet Start: 01/10/24 10:05:00 AM EDT, 2 tab, PO, bid, Disp# 120 tab, Refills: 3, Pharmacy: [place] [id number] Start Date: 01/10/24 Status: Ordered warfarin 7.5 mg oral tablet Start: 12/07/23 7:05:00 AM EDT, 2 tab, PO, Daily, Disp# 60 tab, Refills: 5, Pharmacy: [place] [id number] Start Date: 12/07/23 Status: Ordered Problem List [...] stones Confirmed Active LLQ pain Confirmed 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 Mild cardiomegaly. No acute [...] 13cm. Small right renal peripelvic cysts. 16[facility] Impression: 1.There is nearly occlusive deep [...] invasive carcinoma seen. 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 This is unchanged in destribution and extent as compared to the prior study. No new or interval change. Results Laboratory List Name Date Prothrombin Time w/ INR (PROTIME WITH IN R) 05/29/24 Most recent to oldest [Reference Range]: 1 INR [0.9-1.1] 1.5 1 *HI* (05/29/24 10:10 AM) PT [12.0-14.2 seconds] 18.3 seconds *HI* (05/29/24 10:10 AM) 1Result Comment: Suggested therapeutic range for low-intensity Coumadin therapy for venous thromboembolism is INR 2.0-3.0 (ex: atrial fibrillation, history of TIA/stroke). For high risk patients, the suggested therapeutic range is INR 2.5-3.5 (ex: mechanical prosthetic valves). Testing Performed By: Dept of Pathology [facility], [address] [place] [address] Social History Social History Type Response Smoking Status Never smoked cigaret bernice Sex Male Sex Representation Male (finding) Patient Care team information Care Team Personnel Name: HANNA Jones Tara Position: Nurse Pract - Family Med Member Role: Lifetime Relationship Address: [address] [place] [address] [place] Name: MD Sid, Marimar Neff Position: Physician - Family Med Member Role: Primary Care Provider Address: [address] [place] [address] [place] Name: Herve Álvarez Francis Position: Pharmacist Schedule II Member Role: Pharmacy - Lifetime Address: [facility] [address] [place] [address] [place] Care Team Related Persons Name: JEFFREY ALSTON
--- NOTE | 2024-07-17 05:22 | Emergency Department Note ---
Impression & Plan Vertigo ADMIT ED Provider Note HPI: History obtained from patient. The patient is a 59-year-old gentleman with history of insulin-dependent diabetes, history of DVT currently on Coumadin, presents the emergency department with a chief complaint of dizziness. Patient states that last evening at about 8 PM he was ambulating and felt a sensation of dizziness "as if I was drunk". Patient states he went to bed and when he woke up this morning shortly prior to arrival to the ER he felt very weak and nauseated and felt diaphoretic. Patient states he still does have the sensation of dizziness when he turns his head into certain positions. On arrival here to the ER otherwise the patient is alert, he does not have any focal deficits, he is hemodynamically stable. Patient denies any chest pain or shortness of breath. ROS: - Per HPI Differential Diagnosis: Peripheral vertigo, central vertigo/posterior circulation stroke, acute dehydration/acute kidney injury, critical electrolyte abnormalities to include hyponatremia, DKA/hyperglycemia, amongst other potential pathologies. *Outpatient medications and allergy history reviewed. PE: General: Alert HEENT: Normocephalic, trachea midline Eyes: Extraocular eye movement is intact, no scleral erythema Pulmonary: Clear to auscultation bilaterally, no wheezing Cardio: Regular rate and rhythm GI: Abdomen is soft to palpation : No suprapubic tenderness MSK: No evidence of trauma or malformation of the extremities, no edema Skin: No evidence of rash Neuro: Alert, no focal deficits, no ataxia on [id number] testing bilaterally Psychiatric: Cooperative INDEPENDENT INTERPRETATIONS: school bus monitor: (As interpreted by myself): - An order was placed for continuous cardiac monitoring - Patient was noted to be in sinus rhythm with a rate of 70 EKG: (As interpreted by myself): Rate: 81 Rhythm: Normal sinus rhythm Intervals: Within normal limits ST changes: No ST elevation Time: 0516 Chest x-ray: (As interpreted by myself): No focal filtrate Interventions provided in ED: -IV fluid bolus, meclizine Medical Decision Making: IV was established and lab work obtained, patient was placed on school bus monitor. Lab work shows no leukocytosis, hemoglobin is normal, platelet count is normal, INR is therapeutic at 2.5. CMP does not show any evidence of any critical findings, viral panel testing was obtained as the patient stated he was having some subjective fevers this morning, viral panel testing is positive for coronavirus NL 63. CT angiography of the head neck was obtained, there is no evidence of acute stroke or intracranial hemorrhage. On my reassessment following IV fluids and meclizine, patient was ambulated by the bedside RN and stated he still had a sensation as if he was "falling off to the side". This does seem to improve at rest. I think peripheral vertigo is still a possibility but given the intractable nature of the patient's symptoms, I think he would benefit from further management on the inpatient basis and likely to obtain MRI of the brain to rule out stroke. Patient was in agreement to this plan. Case was discussed with the on-call midlevel provider for the hospitalist service and the patient was placed for admission to the service of Dr. Perez. Consultants/Discussions held with other healthcare providers: -MatthieuistDr. Perez Disposition discussion held by myself with: -Patient and patient's son at the bedside Diagnosis: 1. Vertigo, acute, intractable 2. Viral upper respiratory infection/coronavirus NL 63 PCR testing positive Disposition: ADMIT Declan Tom DO Emergency Medicine Past Med/Surg History Problem List (Updated 07/17/24 @ 08:05 by Declan Tom DO) Vertigo (Acute) DVT (deep venous thrombosis) (Acute) Esophageal spasm (Acute) Dysphagia Encounter for pre-operative examination Superficial thrombophlebitis of right leg (Acute) Exertional dyspnea History of deep venous thrombosis or pulmonary embolus Obesity Arrhythmia CHERYL (obstructive sleep apnea) noncompliant with CPAP DVT (deep venous thrombosis) (Acute) in legs Non-cardiac chest pain (Acute) Pulmonary embolism (Acute) 2017--reason for warfarin Septic arthritis of knee (Acute) Medical History Acid reflux Diverticular disease DVT (deep venous thrombosis) in legs Gout History of 2019 novel coronavirus disease (COVID-19) diagnosed 06/14/2020 History of anesthesia reaction after general anesthesia for botox injection for anal fissure @ [facility] [place] 03/2020 "tongue felt like it was stuck in back of throat and I couldn't breathe, feel back asleep and woke up fine" History of kidney stones Hx of hiatal hernia Morbid obesity with BMI of 40.0-44.9, adult Non-cardiac chest pain CHERYL (obstructive sleep apnea) noncompliant with CPAP Prediabetes Pulmonary embolism 2016--reason for warfarin Septic arthritis of knee Shortness of breath with exposure to COVID-19 virus Surgical History History of anal fissures History of colonoscopy History of cystoscopy History of esophagogastroduodenoscopy (EGD) 11/2018 @ [facility] History of removal of cyst benign cyst removal under left eye Family History Mother Family history of diabetes mellitus Father Family history of diabetes mellitus Family/Other Family history of diabetes mellitus nephew Brother Family history of diabetes mellitus Brother Family history of diabetes mellitus Brother Family history of diabetes mellitus Brother Family history of diabetes mellitus Brother Family history of diabetes mellitus Brother Family history of diabetes mellitus Brother Family history of diabetes mellitus Brother Family history of diabetes mellitus Other Cancer Diabetes Hypertension No family history of adverse response to anesthesia Social History Smoking Status: Never smoker Second Hand Exposure: No; Do You Dip or Chew Tobacco: No (quit 6 yrs ago); Hx Alcohol Use: No Hx Substance Use: No Preferred Language: Congolese Communication Ability: Effective Filter Bed Placer Required: No Beliefs That Will Affect Care: None marital status: Current Living Situation: Family Current Living Situation Comment: Lives with daughter and grandson current occupational status: employed Feels Safe at Home: Yes Assistive Devices: Glasses Allergies Allergies Allergy/AdvReac Type Severity Reaction Status Date / Time No Known Allergies Allergy Verified 11/18/22 12:54 Home Meds Home Medications Medication Instructions Recorded Confirmed allopurinol 300 mg tablet 300 mg PO BID 04/23/20 11/18/22 warfarin 7.5 mg tablet 7.5 mg PO HS 04/23/20 11/18/22 sitagliptin phosphate 50 1 tab PO QAM 07/03/20 11/18/22 mg-metformin 500 mg tablet (Janumet) insulin glargine 100 unit/mL (3 20 unit subcut BID 12/29/21 11/18/22 mL) subcutaneous pen (Basaglar KwikPen U-100 Insulin) metformin 500 mg tablet 500 mg PO BID 12/29/21 11/18/22 atorvastatin 40 mg tablet 40 mg PO DAILY 07/17/24 lisinopril 5 mg tablet 5 mg PO DAILY 07/17/24 Previous Rx's Medication Instructions Recorded meclizine 25 mg tablet 25 mg PO TID PRN dizziness #30 tabs 07/17/24 Results & Data (ED) Vital Signs Vital Signs - 24 hr 07/17/24 05:08 07/17/24 05:17 07/17/24 06:49 Temperature 36.7 C Temperature Source Temporal Artery Scan Pulse Rate 79 79 Pulse Rate [Apical] 68 Pulse Rhythm Regular Pulse Strength Normal Respiratory Rate 18 16 Respiratory Effort / Characteristics Non-Labored Spontaneous Respiratory Depth Normal Respiratory Pattern Regular Blood Pressure 130/87 Blood Pressure [Left Arm] 138/73 Blood Pressure Mean 101 Blood Pressure Mean [Left Arm] 94 Blood Pressure Position Sitting Pulse Oximetry 95 95 Oxygen Delivery Method Room Air Room Air Sepsis Recent Fever Within 48 Hours No Sepsis New/Unexplained Change in Mental Status N/A Sepsis Action Taken by Nursing No Action Required 07/17/24 07:16 Temperature Temperature Source Pulse Rate 70 Pulse Rate [Apical] Pulse Rhythm Regular Pulse Strength Respiratory Rate 18 Respiratory Effort / Characteristics Respiratory Depth Respiratory Pattern Blood Pressure Blood Pressure [Left Arm] Blood Pressure Mean Blood Pressure Mean [Left Arm] Blood Pressure Position Pulse Oximetry 93 Oxygen Delivery Method Room Air Sepsis Recent Fever Within 48 Hours Sepsis New/Unexplained Change in Mental Status Sepsis Action Taken by Nursing Laboratory Data 07/17/24 05:09 07/17/24 05:09 Lab Results 07/17/24 07/17/24 Range/Units 05:09 05:20 WBC 6.83 (4.8-10.8) K/ul RBC 4.97 (4.70-6.10) M/uL Hgb 14.5 (14.0-18.0) g/dl Hct 42.6 (42.0-52.0) % MCV 85.7 (80.0-100.0) fL MCH 29.2 (25.0-34.0) pg MCHC 34.0 (32.0-36.0) g/dL RDW Std Deviation 40.8 (36.4-46.3) fL RDW Coeff of [place] 13.1 (11.5-14.5) % Plt Count 173 (130-400) K/uL MPV 10.2 (9.4-12.4) fL Immature Gran % (Auto) 0.3 % Neut % (Auto) 65.1 % Lymph % (Auto) 20.4 % Gulf % (Auto) 8.8 % Eos % (Auto) 4.7 % Baso % (Auto) 0.7 % Neut # (Auto) 4.45 (1.40-6.50) K/uL Lymph # (Auto) 1.39 (1.20-3.40) K/uL [place] # (Auto) 0.60 H (0.11-0.59) K/uL Eos # (Auto) 0.32 (0.00-0.50) K/uL Baso # (Auto) 0.05 (0.00-0.20) K/uL Immature Gran # (Auto) 0.02 (0.01-0.20) K/uL PT 25.4 H (9.0-12.0) Seconds INR 2.5 H (0.9-1.1) APTT 34 H (21-31) Seconds PTT Ratio 1.3 Sodium 139 (136-145) mmol/L Potassium 4.2 (3.5-5.1) mmol/L Chloride 107 (98-107) mmol/L Carbon Dioxide 26 (21-32) mmol/L Anion Gap 6 (3-11) BUN 13 (6-23) mg/dl Creatinine 1.17 (0.6-1.4) mg/dl Est Cr Clr Drug Dosing Not Reportable eGFR 70.92 BUN/Creatinine Ratio 11.1 (10-20) Glucose 138 H (70-99(Fasting)) mg/dl Calcium 9.1 (8.6-10.3) mg/dl Total Bilirubin 0.4 (0.2-1.0) mg/dl AST 21 (13-39) U/L ALT 19 (7-52) U/L Alkaline Phosphatase 81 (34-104) U/L Troponin I High Sens 5.8 (0-20) pg/ml Total Protein 7.1 (6.0-8.3) gm/dl Albumin 4.3 (3.4-5.0) gm/dl Globulin 2.8 (2.5-4.0) gm/dl Albumin/Globulin Ratio 1.5 (0.9-2) Lipase 38 (11-82) U/L Adenovirus (PCR) Not Detected (NotDetected) B. pertussis DNA (PCR) Not Detected (NotDetected) B.parapertussis DNA PCR Not Detected (NotDetected) C. pneumoniae DNA (PCR) Not Detected (NotDetected) Coronavirus OC43 (PCR) Not Detected (NotDetected) Coronavirus HKU1 (PCR) Not Detected (NotDetected) Coronavirus 229E (PCR) Not Detected (NotDetected) SARS-CoV-2 (PCR) Not Detected (NotDetected) Coronavirus NL63 (PCR) DETECTED A (NotDetected) Human Metapneumovir PCR Not Detected (NotDetected) Influenza Type A (PCR) Not Detected (NotDetected) Influenza Type B (PCR) Not Detected (NotDetected) M. pneumoniae (PCR) Not Detected (NotDetected) Parainfluenza 1 (PCR) Not Detected (NotDetected) Parainfluenza 2 (PCR) Not Detected (NotDetected) Parainfluenza 3 (PCR) Not Detected (NotDetected) Parainfluenza 4 (PCR) Not Detected (NotDetected) RSV (PCR) Not Detected (NotDetected) Entero/Rhino (PCR) Not Detected (NotDetected) Administered Medications Discontinued Medications Sodium Chloride (Nss) 1,000 mls @ 999 mls/hr IV .Q1H1M ONE Stop: 07/17/24 06:21 Last Infusion: 07/17/24 06:59 Dose: Infused Documented By: Admin: 07/17/24 05:28 Dose: 999 mls/hr Documented By: MANJINDER Ioversol (Optiray 320 125ml) 125 ml IV ONCE ONE Stop: 07/17/24 06:20 Last Admin: 07/17/24 06:19 Dose: 118 ml Documented By: RAFAL Meclizine HCl (Meclizine Hcl 25 Mg Tab) 25 mg PO NOW STA Stop: 07/17/24 05:22 Last Admin: 07/17/24 05:27 Dose: 25 mg Documented By: MANJINDER Imaging Data Radiologist's Impression: Chest X-Ray 07/17/24 05:09 EXAM: XR chest 1V portable CLINICAL HISTORY: DIZZINESS. TECHNIQUE: X-ray image of the chest obtained in frontal projection. COMPARISON: Prior X-ray dated 06/07/2023 for comparison. FINDINGS: Pulmonary Parenchyma: Prominent bilateral parahilar markings. No evidence of consolidation, collapse, or focal opacities. No pulmonary nodules identified. No evidence of pleural effusion or pleural thickening. Heart and Mediastinum: Cardiomegaly. No mediastinal widening or masses. No hilar or mediastinal lymphadenopathy. Bony Thorax: Bony thorax appears intact without fractures or deformities. Soft Tissues: Soft tissues overlying the chest wall are unremarkable. IMPRESSION: Stable cardiomegaly with prominent bilateral parahilar markings likely congestion. Electronically signed by Zeus Oleary 07-17-2024 07:12 AM Head CTA 07/17/24 05:20 EXAM: CT angio head wo/w CLINICAL HISTORY: Dizzy. TECHNIQUE: Axial CT angiography of the head was done with contrast (118 ML OPTIRAY 320), and sagittal and coronal reformats with MIP reconstructions. One of these 3D techniques was utilized: Maximum Intensity Pixel (MIP), 3D Reconstructed Images, Volume Rendered Images, Surface Shaded Rendering. One of the following dose reduction techniques were utilized for this exam: Automated exposure control, adjustment of the mA and/or kV according to patient size, and use of iterative reconstruction. CTDI: 106.89 mGy. DLP: 1213.14 mGy"cm. COMPARISON: None. FINDINGS: Intracranial Arteries: The intracranial portions of the internal carotid arteries, anterior cerebral arteries, middle cerebral arteries, posterior cerebral arteries, basilar artery, and vertebral arteries are well-opacified. No evidence of aneurysm, stenosis, or occlusion. No significant atherosclerotic changes. [place]: The [place] is complete. Normal caliber of the communicating arteries. No vascular malformations or aneurysms. Venous Structures: Normal opacification of the major dural venous sinuses. No evidence of venous sinus thrombosis. Brain Parenchyma: Age-related brain atrophy. Normal attenuation of the cerebral hemispheres, cerebellum, and brainstem. No evidence of acute infarct, hemorrhage, or mass effect. Ventricular System: Ventricles are prominent. Skull and Meninges: Normal appearance of the skull. No evidence of meningeal enhancement or thickening. Orbits: Normal appearance of the globes, optic nerves, and extraocular muscles. No evidence of orbital masses or abnormal signals. Mucous retention cyst in the left maxillary sinus. IMPRESSION: 1. No evidence of significant vascular abnormalities. 2. Age-related brain atrophy. Electronically signed by Zeus Oleary 07-17-2024 07:48 AM Neck CTA 07/17/24 05:20 EXAM: CT angio neck with con CLINICAL HISTORY: DIZZY. TECHNIQUE: CT angiography study of the neck vessels with IV contrast was performed and multiple axial sections were obtained with coronal and sagittal reconstructions. 118 ML OPTIRAY 320 was administered One of the following dose reduction techniques were utilized for this exam: Automated exposure control, adjustment of the mA and/or kV according to patient size, and use of iterative reconstruction. One of these 3D techniques was utilized: Maximum Intensity Pixel (MIP), 3D Reconstructed Images, Volume Rendered Images, Surface Shaded Rendering. total DLP 1213.14 mGy.cm. CTDI: 106.89 mGy. COMPARISON: None. FINDINGS: Carotid Arteries: Common carotid arteries, internal carotid arteries, and external carotid arteries bilaterally are well-opacified. No evidence of significant stenosis, occlusion, or aneurysm. No significant atherosclerotic changes. Vertebral Arteries: Vertebral arteries bilaterally are well-opacified. Right vertebral artery small in caliber. No evidence of significant stenosis, occlusion, or aneurysm. No significant atherosclerotic changes. Jugular Veins: Normal opacification of the internal and external jugular veins bilaterally. No evidence of thrombosis or compression. Subclavian Arteries: Subclavian arteries bilaterally are well-opacified. No evidence of significant stenosis, occlusion, or aneurysm. Thyroid Gland: Normal size and morphology of the thyroid gland. No masses or nodules. Soft Tissues: Multiple bilateral deep cervical, submandibular, parotid, and right paratracheal lymph nodes, likely reactive. Normal appearance of the surrounding soft tissues of the neck. No abnormal masses. Cervical Spine: Spondylotic changes in cervical spine. Normal alignment and signal intensity of the cervical vertebrae. No fractures, lytic or sclerotic lesions. IMPRESSION: 1. Normal CT angiography of the neck. 2. No evidence of significant vascular abnormalities. 3. Dominant left vertebral artery. 4. Multiple bilateral cervical and right paratracheal lymph nodes, likely reactive. Electronically signed by Zeus Oleary 07-17-2024 07:53 AM Discharge Plan Visit Data Chief Complaint: Vertigo Stated Complaint: DIZZINESS, BLURY VISION ED Provider: Declan Tom Discharge Problem: Vertigo Patient Disposition: Home - Self-Care Condition: Good Discharge Instructions Anuel/Other Patient Handouts: ED Vertigo, Unspecified Activity Restrictions/Additional Instructions: Please follow-up with your primary care doctor in 2 to 3 days for reassessment and further management. Please return to the ER if you have any new or acutely worsening symptoms. Please utilize meclizine as needed for episodes of dizziness. Forms Stand Alone Forms: [facility], Important Visit Information Prescriptions Prescriptions: New meclizine 25 mg tablet 25 mg PO TID PRN (Reason: dizziness) Qty: 30 0RF No Action metformin 500 mg tablet 500 mg PO BID insulin glargine [Basaglar KwikPen U-100 Insulin] 100 unit/mL (3 mL) insulin pen 20 unit subcut BID warfarin 7.5 mg tablet 7.5 mg PO HS Rx Instructions: TAKE THIS MEDICATION DAILY DIRECTED BY ANTICOAGULATION CLINIC/MD allopurinol 300 mg tablet 300 mg PO BID Janumet 50-500 mg Tablet 1 tab PO QAM atorvastatin 40 mg tablet 40 mg PO DAILY lisinopril 5 mg tablet 5 mg PO DAILY Referrals Referrals: Marimar Lau MD [Primary Care Provider] -
[2024-07-17] MEDS: MECLIZINE HCL 25 MG TAB PO STA (05:27)
[2024-07-17] MEDS: SODIUM CHLORIDE 0.9% 1,000 ML IV ONE (05:28)
[2024-07-17 05:44] LABS: Basophils # (auto) 0.05 K/uL (0.00-0.20); Basophils % (auto) 0.7 %; Eosinophils # (auto) 0.32 K/uL (0.00-0.50); Eosinophils % (auto) 4.7 %; Hematocrit (blood only) 42.6 % (42.0-52.0); Hemoglobin 14.5 g/dl (14.0-18.0); Immature Granulocytes # (auto) 0.02 K/uL (0.01-0.20); Immature Granulocytes % (auto) 0.3 %; Lymphocytes # (auto) 1.39 K/uL (1.20-3.40); Lymphocytes % (auto) 20.4 %; Mean Corpuscular Hemoglobin 29.2 pg (25.0-34.0); Mean Corpuscular Volume 85.7 fL (80.0-100.0); Mean Platelet Volume 10.2 fL (9.4-12.4); Monocytes % (auto) 8.8 %; Neutrophils # (auto) 4.45 K/uL (1.40-6.50); Neutrophils % (auto) 65.1 %; Platelet Count 173 K/uL (130-400); RDW Coefficient of Variation 13.1 % (11.5-14.5); RDW Standard Deviation 40.8 fL (36.4-46.3); Red Blood Count 4.97 M/uL (4.70-6.10); White Blood Count 6.83 K/ul (4.8-10.8)
[2024-07-17 05:54] LABS: Alanine Aminotransferase 19 U/L (7-52); Albumin Globulin Ratio 1.5 (0.9-2); Albumin Level 4.3 gm/dl (3.4-5.0); Alkaline Phosphatase 81 U/L (34-104); Anion Gap 6 (3-11); Aspartate Aminotransferase 21 U/L (13-39); BUN Creatinine Ratio 11.1 (10-20); Bilirubin,Total 0.4 mg/dl (0.2-1.0); Blood Urea Nitrogen 13 mg/dl (6-23); Calcium 9.1 mg/dl (8.6-10.3); Carbon Dioxide 26 mmol/L (21-32); Chloride 107 mmol/L (98-107); Globulin 2.8 gm/dl (2.5-4.0); Glucose 138 mg/dl (70-99(Fasting)); Lipase 38 U/L (11-82); Potassium 4.2 mmol/L (3.5-5.1); Sodium 139 mmol/L (136-145); Total Protein 7.1 gm/dl (6.0-8.3)
[2024-07-17 06:00] LABS: Troponin I High Sensitivity 5.8 pg/ml (0-20)
[2024-07-17 06:03] LABS: INR 2.5 (0.9-1.1); Partial Thromboplastin Ratio 1.3; Partial Thromboplastin Time 34 Seconds (21-31); Prothrombin Time 25.4 Seconds (9.0-12.0)
[2024-07-17] MEDS: OPTIRAY 320 125ml IV ONE (06:19)
[2024-07-17 06:43] LABS: Adenovirus PCR Not Detected (NotDetected); Bordetella parapertussis PCR Not Detected (NotDetected); Bordetella pertussis PCR Not Detected (NotDetected); Chlamydia pneumoniae PCR Not Detected (NotDetected); Coronavirus 229E PCR Not Detected (NotDetected); Coronavirus CoV-2 (COVID19)PCR Not Detected (NotDetected); Coronavirus HKU1 PCR Not Detected (NotDetected); Coronavirus NL63 PCR DETECTED (NotDetected); Coronavirus OC43PCR Not Detected (NotDetected); Human Metapneumovirus PCR Not Detected (NotDetected); Influenza A PCR Not Detected (NotDetected); Influenza B PCR Not Detected (NotDetected); Mycoplasma pneumoniae PCR Not Detected (NotDetected); Parainfluenza Virus 1 PCR Not Detected (NotDetected); Parainfluenza Virus 2 PCR Not Detected (NotDetected); Parainfluenza Virus 3 PCR Not Detected (NotDetected); Parainfluenza Virus 4 PCR Not Detected (NotDetected); Respiratory Syncytial VirusPCR Not Detected (NotDetected); Rhinovirus/Enterovirus PCR Not Detected (NotDetected)
--- NOTE | 2024-07-17 07:13 | XRay Report ---
EXAM: XR chest 1V portable CLINICAL HISTORY: DIZZINESS. TECHNIQUE: X-ray image of the chest obtained in frontal projection. COMPARISON: Prior X-ray dated 06/07/2023 for comparison. FINDINGS: Pulmonary Parenchyma: Prominent bilateral parahilar markings. No evidence of consolidation, collapse, or focal opacities. No pulmonary nodules identified. No evidence of pleural effusion or pleural thickening. Heart and Mediastinum: Cardiomegaly. No mediastinal widening or masses. No hilar or mediastinal lymphadenopathy. Bony Thorax: Bony thorax appears intact without fractures or deformities. Soft Tissues: Soft tissues overlying the chest wall are unremarkable. IMPRESSION: Stable cardiomegaly with prominent bilateral parahilar markings likely congestion. Electronically signed by Zeus Oleary 07-17-2024 07:12 AM
--- NOTE | 2024-07-17 07:48 | CT Scan Report ---
EXAM: CT angio head wo/w CLINICAL HISTORY: Dizzy. TECHNIQUE: Axial CT angiography of the head was done with contrast (118 ML OPTIRAY 320), and sagittal and coronal reformats with MIP reconstructions. One of these 3D techniques was utilized: Maximum Intensity Pixel (MIP), 3D Reconstructed Images, Volume Rendered Images, Surface Shaded Rendering. One of the following dose reduction techniques were utilized for this exam: Automated exposure control, adjustment of the mA and/or kV according to patient size, and use of iterative reconstruction. CTDI: 106.89 mGy. DLP: 1213.14 mGy"cm. COMPARISON: None. FINDINGS: Intracranial Arteries: The intracranial portions of the internal carotid arteries, anterior cerebral arteries, middle cerebral arteries, posterior cerebral arteries, basilar artery, and vertebral arteries are well-opacified. No evidence of aneurysm, stenosis, or occlusion. No significant atherosclerotic changes. [place]: [place] is complete. Normal caliber of the communicating arteries. No vascular malformations or aneurysms. Venous Structures: Normal opacification of the major dural venous sinuses. No evidence of venous sinus thrombosis. Brain Parenchyma: Age-related brain atrophy. Normal attenuation of the cerebral hemispheres, cerebellum, and brainstem. No evidence of acute infarct, hemorrhage, or mass effect. Ventricular System: Ventricles are prominent. Skull and Meninges: Normal appearance of the skull. No evidence of meningeal enhancement or thickening. Orbits: Normal appearance of the globes, optic nerves, and extraocular muscles. No evidence of orbital masses or abnormal signals. Mucous retention cyst in the left maxillary sinus. IMPRESSION: 1. No evidence of significant vascular abnormalities. 2. Age-related brain atrophy. Electronically signed by Zeus Oleary 07-17-2024 07:48 AM
--- NOTE | 2024-07-17 07:53 | CT Scan Report ---
EXAM: CT angio neck with con CLINICAL HISTORY: DIZZY. TECHNIQUE: CT angiography study of the neck vessels with IV contrast was performed and multiple axial sections were obtained with coronal and sagittal reconstructions. 118 ML OPTIRAY 320 was administered One of the following dose reduction techniques were utilized for this exam: Automated exposure control, adjustment of the mA and/or kV according to patient size, and use of iterative reconstruction. One of these 3D techniques was utilized: Maximum Intensity Pixel (MIP), 3D Reconstructed Images, Volume Rendered Images, Surface Shaded Rendering. total DLP 1213.14 mGy.cm. CTDI: 106.89 mGy. COMPARISON: None. FINDINGS: Carotid Arteries: Common carotid arteries, internal carotid arteries, and external carotid arteries bilaterally are well-opacified. No evidence of significant stenosis, occlusion, or aneurysm. No significant atherosclerotic changes. Vertebral Arteries: Vertebral arteries bilaterally are well-opacified. Right vertebral artery small in caliber. No evidence of significant stenosis, occlusion, or aneurysm. No significant atherosclerotic changes. Jugular Veins: Normal opacification of the internal and external jugular veins bilaterally. No evidence of thrombosis or compression. Subclavian Arteries: Subclavian arteries bilaterally are well-opacified. No evidence of significant stenosis, occlusion, or aneurysm. Thyroid Gland: Normal size and morphology of the thyroid gland. No masses or nodules. Soft Tissues: Multiple bilateral deep cervical, submandibular, parotid, and right paratracheal lymph nodes, likely reactive. Normal appearance of the surrounding soft tissues of the neck. No abnormal masses. Cervical Spine: Spondylotic changes in cervical spine. Normal alignment and signal intensity of the cervical vertebrae. No fractures, lytic or sclerotic lesions. IMPRESSION: 1. Normal CT angiography of the neck. 2. No evidence of significant vascular abnormalities. 3. Dominant left vertebral artery. 4. Multiple bilateral cervical and right paratracheal lymph nodes, likely reactive. Electronically signed by eZus Oleary 07-17-2024 07:53 AM
--- NOTE | 2024-07-17 08:23 | History & Physical Report ---
Date of Service July 17, 2024 Assessment & Plan (1) Stroke-like symptoms: Plan: Patient presents with vertigo x1 day Hx of DVT and PE on compliant Coumadin - Head/Neck CTA negative acute abnormalities; dominant left vertebral artery, multiple bilateral cervical and right paratracheal lymph nodes likely reactive - echo 03/2022 mild LVH, no valvular abnormalities, no bubble study - MRI ordered; if negative defer further stroke workup - is already on atorvastatin 40 Mg daily; continue - hold lisinopril 07/17 for permissive hypertension; will resume 07/18 - Telemetry monitoring - Q4H neuro checks Vertigo - scheduled meclizine TID along with Solu-Medrol 40 mg Q8H - if MRI shows stroke will discontinue (2) Coronavirus infection: Plan: dry cough x 3 days possibly contributing to vertigo if stroke workup negative - CXR showing stable cardiomegaly with prominent bilateral hilar markings likely congestive - Supportive care; Tylenol prn, promote oral hydration - airborne precautions (3) Type 2 diabetes mellitus: Plan: Controlled on Glargine 20 U BID and metformin at home - no recent A1c on file; add to a.m. labs - hold metformin - continue home Lantus - SSI given steroid tx - CF 25, carb ratio 7 (4) History of DVT (deep vein thrombosis): Plan: history of DVT and PE Continue Coumadin INR therapeutic 2.5 on admission (5) Obesity: Plan: hx of CHERYL - no CPAP Plan Patient is a 59-year-old male with a past medical history of previous DVT/PE on Coumadin, type II DM, hypertension, hyperlipidemia. He presented to the ER due to vertigo that began at 8 PM 15. He is being admitted for stroke workup. Chronic stable diagnoses: HLD - continue statin HTN - resume lisinopril 07/18 VTE ppx: Warfarin Diet: t2dm Dispo: med/tele Admission and Anticipated Discharge Date Admission Date: 07/17/24 History of Present Illness Chief Complaint: vertigo Primary Care Provider: Marimar Lau MD Patient is a 59-year-old male with a past medical history of previous DVT/PE on Coumadin, type II DM, hypertension, hyperlipidemia. He presented to the ER due to vertigo that began at 8 PM 1/5. He is being admitted for stroke workup. Patient stated that 8 PM last night he felt like the room was spinning, he was able to go to bed because the vertigo is relieved with laying down with his head supported. This morning when he woke up he felt diaphoretic, and almost fell down due to the vertigo. He stated he also has blurry vision during his episodes. He denies vomiting but did have dry heaves. He denies other strokelike symptoms like facial droop, expressive aphasia, numbness/tingling, weakness. He also endorses a cough that is dry for the past 3 days. Patient denies fever, chills, rhinorrhea, sore throat, dyspnea, dyspnea on exertion, chest pain, abdominal pain, vomiting. He does have a history of chewing tobacco for 30 years, quit in 2011. Denies alcohol use. He is compliant on his Coumadin, INR currently therapeutic at 2.5. He does not use CPAP or BiPAP for his obstructive sleep apnea. He did not take his home medications this morning including his insulin; will order on admission. He wishes to be full code at this time. Coumadin schedule: 1 tab = 7.5 mg 2 tabs Wednesday and Wednesday 1.5 tabs , Wed, , Wed 1 tab Wednesday Allergies Allergy/AdvReac Type Severity Reaction Status Date / Time No Known Allergies Allergy Verified 11/18/22 12:54 Home Medications Medication Instructions Recorded Confirmed Type warfarin 7.5 mg tablet 7.5 mg PO HS 04/23/20 07/17/24 History insulin glargine 100 unit/mL (3 20 unit subcut BID 12/29/21 07/17/24 History mL) subcutaneous pen (Basaglar KwikPen U-100 Insulin) metformin 500 mg tablet 500 mg PO BID 12/29/21 07/17/24 History atorvastatin 40 mg tablet 40 mg PO DAILY 07/17/24 07/17/24 History lisinopril 5 mg tablet 5 mg PO DAILY 07/17/24 07/17/24 History meclizine 25 mg tablet 25 mg PO TID PRN dizziness #30 tabs 07/17/24 Rx Past Med/Surg History Problem List (Updated 07/17/24 @ 09:06 by Bethany Ferrari PA-C) Coronavirus infection History of DVT (deep vein thrombosis) Type 2 diabetes mellitus Stroke-like symptoms Vertigo (Acute) DVT (deep venous thrombosis) (Acute) Esophageal spasm (Acute) Dysphagia Encounter for pre-operative examination Superficial thrombophlebitis of right leg (Acute) Exertional dyspnea History of deep venous thrombosis or pulmonary embolus Obesity Arrhythmia CHERYL (obstructive sleep apnea) noncompliant with CPAP DVT (deep venous thrombosis) (Acute) in legs Non-cardiac chest pain (Acute) Pulmonary embolism (Acute) 2017--reason for warfarin Septic arthritis of knee (Acute) Medical History Acid reflux Diverticular disease DVT (deep venous thrombosis) in legs Gout History of 2019 novel coronavirus disease (COVID-19) diagnosed 06/14/2020 History of anesthesia reaction after general anesthesia for botox injection for anal fissure [place] [facility] [place] "tongue felt like it was stuck in back of throat and I couldn't breathe, feel back asleep and woke up fine" History of kidney stones Hx of hiatal hernia Morbid obesity with BMI of 40.0-44.9, adult Non-cardiac chest pain CHERYL (obstructive sleep apnea) noncompliant with CPAP Prediabetes Pulmonary embolism 2017--reason for warfarin Septic arthritis of knee Shortness of breath with exposure to COVID-19 virus Surgical History History of anal fissures History of colonoscopy History of cystoscopy History of esophagogastroduodenoscopy (EGD) 11/2018 @ [facility] History of removal of cyst benign cyst removal under left eye Family History Mother Family history of diabetes mellitus Father Family history of diabetes mellitus Family/Other Family history of diabetes mellitus nephew Brother Family history of diabetes mellitus Brother Family history of diabetes mellitus Brother Family history of diabetes mellitus Brother Family history of diabetes mellitus Brother Family history of diabetes mellitus Brother Family history of diabetes mellitus Brother Family history of diabetes mellitus Brother Family history of diabetes mellitus Other Cancer Diabetes Hypertension No family history of adverse response to anesthesia Social History Smoking Status: Never smoker Second Hand Exposure: No; Do You Dip or Chew Tobacco: No (quit 6 yrs ago); Hx Alcohol Use: No Hx Substance Use: No Preferred Language: Japanese Communication Ability: Effective Technical Account Executive Required: No Beliefs That Will Affect Care: None marital status: Current Living Situation: Family Current Living Situation Comment: Lives with daughter and grandson current occupational status: employed Feels Safe at Home: Yes Assistive Devices: Glasses Review of Systems Review of Systems: see HPI Physical Exam Physical Exam: The patient is awake, alert and oriented 3, obese, normocephalic and atraumatic, in no acute distress. Non-toxic appearing. HEENT- EOMI, mucous membranes moist. Hearing grossly intact. Heart-normal S1 and S2. No murmurs, rubs or gallops. Lungs-clear bilaterally, no respiratory distress, no accessory muscle use. Abdomen-normal bowel sounds and soft. No ascites noted. Non-tender. Extremities- no clubbing, cyanosis, or edema. Rheumatologic-normal range of motion. Psychiatric-normal affect. Musculoskeletal: no cyanosis or clubbing, extremities motor strength 5/5 Neurologic: PERRL, EOMI, accommodation nl, no face palsy, no dysarthria CN's II-XI intact bilaterally; no focal motor deficits and not confused Speech / Cognition: normal speech Motor/Sensory: + sensory deficit; no pronator drift Results & Data Results & Data Vital Signs (Past 12 Hours) Vital Signs Temp Pulse Pulse Resp BP BP Pulse Ox 07/17/24 07:16 70 18 93 07/17/24 06:49 68 16 138/73 95 07/17/24 05:17 79 07/17/24 05:08 36.7 C 79 18 130/87 95 O2 Del Method 07/17/24 07:16 Room Air 07/17/24 06:49 Room Air 07/17/24 05:17 07/17/24 05:08 Room Air Laboratory Results reviewed CBC, PT/INR, CMP, BioFire Diagnostic Findings reviewed neck CTA, head CTA, CXR Medications Administered ED: Meclizine 25 mg PO, NSS 1000 ml ECG Additional Comments: NSR, incomplete RBBB Code Status & VTE Plan Code Status full VTE Prophylaxis Plan VTE Prophylaxis will be ordered: Yes Supervising Physician Co-Signing Physician Notes The patient was seen by me. The chart was reviewed. Case discussed with CONSTANTIN Estes. Agree with assessment and plan PG Care Time/CCT Total # of Minutes Spent Total Time Spent with Patient: Total time spent is greater than 50% in coordination of care (as documented) at patient's floor/unit and/or counseling patient: Coding Level of Care Code 59064 INT INP/OBS CARE MIN Diagnoses Stroke-like symptoms R29.90 Coronavirus infection B34.2 Type 2 diabetes mellitus E11.9 History of DVT (deep vein thrombosis) Z86.718 Obesity E66.9
[2024-07-17] MEDS ORDERED: methylPREDNISolone 125 MG/2 ML VIAL IV SCH ×2 (09:15→17:00)
[2024-07-17] MEDS ORDERED: methylPREDNISolone 40 MG in SYRINGE 0 ML IV ONE (09:15)
[2024-07-17] MEDS ORDERED: GLUCOSE 40% GEL 15 GM TUBE PO PRN (09:34)
[2024-07-17] MEDS ORDERED: GLUCAGON FOR INJ 1 MG VIAL SQ PRN (09:34)
[2024-07-17] MEDS ORDERED: GLUCOSE 10 TAB/TUBE PO PRN (09:34)
[2024-07-17] MEDS ORDERED: DOCUSATE SODIUM 100 MG CAP PO PRN (09:34)
[2024-07-17] MEDS ORDERED: ACETAMINOPHEN 325 MG TAB PO PRN (09:34)
[2024-07-17] MEDS ORDERED: DEXTROSE 50% 50 ML SYRINGE IV PRN (09:34)
[2024-07-17] MEDS ORDERED: CARBOHYDRATES FOR HYPOGLYCEMIA PO PRN (09:34)
--- NOTE | 2024-07-17 10:30 | Magnetic Resonance Report ---
MR brain wo con CLINICAL HISTORY: stroke like sx TECHNIQUE: Multiplanar and multisequence MR images of the brain were obtained without intravenous con trast. Comparison: Comparison is made to CTA head and neck 07/17/2024 FINDINGS: No abnormal restricted diffusion is identified. Foci of T2 and FLAIR hyperintensity are noted in the paraventricular areas consistent with chronic small vessel ischemic disease. Ex vacuo ventriculomegal y and sulcal enlargement is noted compatible with diffuse volume loss. No mass is seen. There is no m ass effect or midline shift. There is no evidence of acute intraparenchymal hemorrhage. No extra axia l fluid collections are seen. The corpus callosum, pituitary gland, and cerebellar tonsils appear john ssly unremarkable. Flow voids of the major intracranial arterial vessels are identified. Sinus mucosal thickening is see n most prominent in the left maxillary sinus. IMPRESSION: No acute abnormalities. ACT 112: Negative or not required by law. Electronically signed by: Anupam Olmedo M.D. 07/17/2024 10:29 AM
[2024-07-17] MEDS: LANTUS PER UNIT CHARGE SQ SCH (11:27)
[2024-07-17] MEDS: INSULIN ASPART PER UNIT CHARGE SC SCH (11:35)
[2024-07-17] MEDS: ATORVASTATIN 40 MG TAB PO SCH (12:41)
[2024-07-17] MEDS: methylPREDNISolone 125 MG/2 ML VIAL IV STA (12:41)
[2024-07-17] MEDS ORDERED: WARFARIN SOD 7.5 MG TAB PO SCH (14:00)
[2024-07-17] MEDS: MECLIZINE 12.5 MG TAB PO SCH (14:02)
[2024-07-17] MEDS: WARFARIN SOD 7.5 MG TAB PO SCH (14:02)
[2024-07-17] MEDS: methylPREDNISolone 40 MG in SYRINGE 0 ML IV SCH (20:31)
[2024-07-18 03:20] VITALS: RESP 18
--- NOTE | 2024-07-18 06:36 | Electrocardiogram Report ---
Test Reason : Blood Pressure : */* mmHG Vent. Rate : 81 BPM Atrial Rate : 81 BPM P-R Int : 148 ms QRS Dur : 100 ms QT Int : 372 ms P-R-T Axes : 66 -17 27 degrees QTcB Int : 432 ms Normal sinus rhythm Incomplete right bundle branch block Borderline ECG When compared with ECG of 07-Jun-2023 10:49, Incomplete right bundle branch block is now Present Confirmed by Marquise Vines ([id number]) on 07/18/2024 6:35:52 AM Referred By: REFERRED SELF Confirmed By: Marquise Vines
[2024-07-18 08:11] LABS: Basophils # (auto) 0.01 K/uL (0.00-0.20); Basophils % (auto) 0.1 %; Hematocrit (blood only) 41.8 % (42.0-52.0); Hemoglobin 14.5 g/dl (14.0-18.0); Immature Granulocytes # (auto) 0.04 K/uL (0.01-0.20); Immature Granulocytes % (auto) 0.3 %; Lymphocytes # (auto) 1.01 K/uL (1.20-3.40); Mean Corpuscular Hemoglobin 29.7 pg (25.0-34.0); Mean Corpuscular Hgb Conc 34.7 g/dL (32.0-36.0); Mean Corpuscular Volume 85.5 fL (80.0-100.0); Mean Platelet Volume 10.8 fL (9.4-12.4); Monocytes # (auto) 0.21 K/uL (0.11-0.59); Monocytes % (auto) 1.7 %; Neutrophils # (auto) 11.39 K/uL (1.40-6.50); Neutrophils % (auto) 89.9 %; Platelet Count 201 K/uL (130-400); RDW Coefficient of Variation 12.8 % (11.5-14.5); RDW Standard Deviation 39.6 fL (36.4-46.3); Red Blood Count 4.89 M/uL (4.70-6.10); White Blood Count 12.66 K/ul (4.8-10.8)
[2024-07-18 08:17] LABS: BUN Creatinine Ratio 15.2 (10-20); Calcium 9.2 mg/dl (8.6-10.3); Creatinine Clr Calc Pharmacy 114.2 ml/min; Magnesium 1.9 mg/dl (1.7-2.4); Potassium 4.5 mmol/L (3.5-5.1)
[2024-07-18 08:19] LABS: Estimated Average Glucose 134 mg/dl; Hemoglobin A1C 6.3 % (4.5-5.6)
[2024-07-18] MEDS: lisinopril 5 MG TAB PO SCH (10:33)
[2024-07-18 11:53] VITALS: BP 144/89; TEMP 97.9; O2SAT 96
[2024-07-18 12:34] VITALS: PULSE 77
--- NOTE | 2024-07-18 14:13 | Discharge Summary ---
Discharge Summary Date of Service July 18, 2024 Principal Dx & Hospital Course #1 = Principal Diagnosis (1) Stroke-like symptoms: No evidence of acute CVA seen on MRI scan. He has acute labyrinthitis causing the vertigo. He is now on Solu-Medrol and meclizine while hospitalized. He will continue meclizine at discharge and a prednisone tapering dose. He has improved somewhat but is not yet asymptomatic. This may take some time. He can be discharged home today, July 18, because he is medically stable. (2) Coronavirus infection: COVID-positive by nasal swab. This could have been positive for quite some time. He does not have any current signs of an active viral infection. (3) Type 2 diabetes mellitus: ADA diet. Sliding scale coverage. Basal insulin therapy. Metformin is on hold while hospitalized. (4) History of DVT (deep vein thrombosis): history of DVT and PE. Continue Coumadin therapy. Serial INR (5) Obesity: hx of CHERYL - no CPAP Plan Home today, July 18, on meclizine and prednisone tapering dose. Admission HPI Per Admitting Provider Patient is a 59-year-old male with a past medical history of previous DVT/PE on Coumadin, type II DM, hypertension, hyperlipidemia. He presented to the ER due to vertigo that began at 8 PM 07/16. He is being admitted for stroke workup. Patient stated that 8 PM last night he felt like the room was spinning, he was able to go to bed because the vertigo is relieved with laying down with his head supported. This morning when he woke up he felt diaphoretic, and almost fell down due to the vertigo. He stated he also has blurry vision during his epi sodes. He denies vomiting but did have dry heaves. He denies other strokelike symptoms like facial droop, expressive aphasia, numbness/tingling, weakness. He also endorses a cough that is dry for the past 3 days. Patient denies fever, chills, rhinorrhea, sore throat, dyspnea, dyspnea on exertion, chest pain, abdominal pain, vomiting. He does have a history of chewing tobacco for 30 years, quit in 2011. Denies alcohol use. He is compliant on his Coumadin, INR currently therapeutic at 2.5. He does not use CPAP or BiPAP for his obstructive sleep apnea. He did not take his home medications this morning including his insulin; will order on admission. He wishes to be full code at this time. Coumadin schedule: 1 tab = 7.5 mg 2 tabs Wednesday and Wednesday 1.5 tabs , Wed, , Wed 1 tab Wednesday Discharge Exam General-alert and oriented x3, no fever, no chills HEENT-head atraumatic and normocephalic, pupils equal and reactive to light, extraocular muscles intact Neck-no lymphadenopathy or thyromegaly, trachea midline Chest-clear to auscultation. No rales, wheezing or rhonchi Cardiac-regular rate and rhythm, normal S1 and S2 Abdomen-normal bowel sounds, no hepatosplenomegaly Extremities-no cyanosis, clubbing, or edema Neuro-cranial nerves II through XII intact, motor and sensory function within normal limits, strength symmetrical, no focal deficits Psych-normal affect, normal mood Discharge Plan Discharge Items Patient Disposition: Home - Self-Care Reason For Visit: STROKE WORKUP, VERTIGO Discharge Diagnosis: Acute labyrinthitis with vertigo Condition on Discharge: Good Activity: Resume your previous activity Non-emergency contact: Primary Care Provider Call non-emergency contact if: your symptoms worsen Follow-up/Referrals: Marimar Lau MD [Primary Care Provider] - Diet: Carb Consistent or DM2 Addtl Attending Provider Instructions: Take prednisone in a tapering dose fashion as directed. Take meclizine 3 times daily for 2 days beyond when vertigo stops Pending Studies at Discharge: No Stand-Alone Forms: [facility] Gist, Smoking Cessation Medications and DC Order Prescriptions: New meclizine 12.5 mg Tablet 12.5 mg PO TID Qty: 20 0RF prednisone 10 mg tablet See Rx Instructions .ROUTE .COMPLEX Qty: 12 0RF Rx Instructions: 10 mg orally 3 times a day for 2 days, then 10 mg twice a day for 2 days, then 10 mg once a day for 2 days, then stop Continued metformin 500 mg tablet 500 mg PO BID insulin glargine [Basaglar KwikPen U-100 Insulin] 100 unit/mL (3 mL) insulin pen 20 unit subcut BID warfarin 7.5 mg tablet 7.5 mg PO HS Patient Comments: takes in afternoon 2 tabs Wednesday and Saturdays 1.5 tabs , Wed, , Fri 1 tab Sun Rx Instructions: TAKE THIS MEDICATION DAILY DIRECTED BY ANTICOAGULATION CLINIC/MD atorvastatin 40 mg tablet 40 mg PO DAILY lisinopril 5 mg tablet 5 mg PO DAILY Discharge Orders: Discharge Order (Routine); Ordered 07/18/24 Ordered By: Jesus Alberto Agee/Other Patient Handouts: Managing Type 2 Diabetes, Vertigo Disequilibrium Syncope, Vertigo Medicine Tx Admission Data Admit Date/Time: 07/17/24 08:58 Attending Provider: Jesus Alberto Perez Admit Provider: Jesus Alberto Perez Primary Care Provider: Marimar Lau Other Providers: Jesus Alberto Perez Other Interventions: Discharge Summary Assessment (RN) Last Done: 07/18/24 12:33 Hospital Stay Data Consultations 07/17/24 08:22 ED Decision to Admit Stat Diagnostic Imagining Performed 07/17/24 05:20 CT angio head wo/w Stat CT angio neck with con Stat 07/17/24 08:49 MRI Brain [MR brain wo con] Urgent Pending Results Patient Have Any Pending Studies at Discharge: No Discharge Instructions Given to Patient (Per Discharging Provider) Take prednisone in a tapering dose fashion as directed. Take meclizine 3 times daily for 2 days beyond when vertigo stops Total Time Total Time Spent Total Time Spent (In Minutes): 45 minutes Coding Level of Care Code 74079 INP/OBS DISCH >30 MIN Diagnoses Stroke-like symptoms R29.90 Coronavirus infection B34.2 Type 2 diabetes mellitus E11.9 History of DVT (deep vein thrombosis) Z86.718 Obesity E66.9
[2024-07-18] MEDS: WARFARIN SOD 7.5 MG TAB PO SCH (15:05)
[2024-07-23] MEDS ORDERED: WARFARIN SOD 7.5 MG TAB PO SCH (14:00)
== END 2024-07-18 15:11 | disposition home or self-care (01) ==
LOC: EDINP 05:04 → ED 05:04 → EDINP 23:25 → 2N 07-18 00:46